=== PATIENT | female | born 1990 | race American Indian/Alaskan Native ===

== ENCOUNTER 2020-01-07 07:26 | Observation (INO) | payer MEDICAID, SELFPAY ==
[2020-01-07 07:31] VITALS: BP 147/108; PULSE 124; TEMP 36.9; O2SAT 98
[2020-01-07 08:08] LABS: Bilirubin Negative (Negative); Blood Negative (Negative); Clarity Clear (Clear); Glucose Negative (Negative); Ketones Negative (Negative); Leukocyte Esterase Negative (Negative); Nitrite Negative (Negative); Urobilinogen 0.2 EU/dL (Up TO 0.2)
[2020-01-07 08:17] LABS: Bacteria Rare HPF (Negative); Crystals Negative HPF (Negative); Epithelial Cells Rare HPF (Negative); RBC 0-2 HPF (0-2); WBC 0-2 HPF (0-5)
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
[2020-01-07 08:18] LABS: C & S Indicated? No; Casts Negative LPF (Negative); Mucus Negative (Negative)
--- NOTE | 2020-01-07 08:18 | CMSP_ITS ---
- If Service Date Differs Date of service: 01/07/20 Time of Service: 08:19 Care Management Safety Plan Chief Complaint: Dave, who identifies as female and prefers to be called Brianna, is a 29 year old individual who presents in the emergency department with her boyfriend for a psych eval. Upon arrival at the hospital, Brianna is slurring her speech, is somnolent, and is clinically intoxicated with a PRASHANT of 416.6. Several hours later, Brianna is sober and able to be assessed by Lacy [facility] crisis screener. She reports suicidal ideation but denies plan to act on the thoughts. She also admits to hearing voices and supernatural activity throughout the day and night. Brianna is seeking a voluntary placement to address her depression, auditory hallucinations, SI, and substance use. VOLUNTARY FOR INPATIENT PSYCHIATRIC STABILIZATION. Patient is appropriate in all interactions since arriving at [facility]; Pt has demonstrated appropriate coping and communication skills, has articulated her needs and concerns and is fully engaged during staff interactions. Safety plan has been established with patient, and care team, to adhere to patient goals, identify restrictions based on behavioral status, address nutrition, and determine allowed personal belongings, tools for hygiene and personal care. Determine level of activity including ambulation, level of supervision, visitors, and determine privileges based on behaviors and level of engagement by pt. SAFETY PLAN: 1. Will remain on suicide precautions and in paper clothes. 2. Will remain in room under direct supervision of one-on-one staff at all times provided by CPSO; VALENTIN, LDR RN acds block 1 operator. 3. May have paper cups, plates, finger foods as well as a metal spoon with which to eat meals. [facility] staff will be responsible for removing spoon once patient is done eating. 4. Follow [facility] Management of the Admitted Behavioral Health Patient policy. 5. Comfort bath system only. 6. No personal belongings. 7. Visitors-Boyfriend, Jamie, allowed to visit as long as appropriate and at nursing discretion. Per Dr. Wilson, boyfriend has been covid tested. 8. Activities: None while in the ED. If patient is moved to Med/Surg, will be allowed soft tip markers, paper, television, and other activities at nursing discretion. 9. Bathroom privileges: While in the ED, must be accompanied by staff. If patient is moved to Med/Surg, will be allowed to use the bathroom in her room w [facility] supervision. 10. Phone: No phone privileges at this time. 11. Due to VOLUNTARY status, if patient wishes to leave [facility], the [facility] chisel worker must be contacted to re-evaluate patient prior to patient exiting the building. Patient is currently voluntarily at [facility] and seeking inpatient admission when a bed becomes available. [facility] Frontline Washer Operator will continue seeking placement. Please contact the Oven Heater Helper Harbor Tug Captain ([phone]) and [facility] Washer Operator ([phone]) for any needed changes in the Safety Plan. Safety plan has been provided to interdepartmental care team.
[2020-01-07 08:28] LABS: *AMPHETAMINES SCREEN URINE Negative (Negative); *BARBITURATES SCREEN URINE Negative (Negative); *BENZODIAZEPINES SCREEN URINE Negative (Negative); Cannabinoids THC POSITIVE (Negative); Cocaine Screen,Urine Negative (Negative); METHADONE URINE SCREEN Negative (Negative); OPIATES URINE SCREEN Negative (Negative)
[2020-01-07 08:29] LABS: Tricyclic Antidepressants Negative (Negative)
[2020-01-07 08:57] LABS: Abs Immature Grans 0.01 k/cumm (0.0-0.09); Absolute Basophil Count 0.01 k/cumm (0.0-0.2); Absolute Eosinophil Count 0.12 k/cumm (0.0-0.7); Absolute Monocyte Count 0.35 k/cumm (0.11-0.7); Absolute Neutrophil Count 2.44 k/cumm (1.2-6.7); Basophils % 0.2; Eosinophils % 2.7; HCT 42.9 % (36.0-46.0); HGB 15.8 g/dL (12.0-15.5); Immature Grans % 0.2 %; Lymphocytes % 33.9; Mean Corp. HGB Concentration 36.8 g/dL (32.0-36.0); Mean Corpuscular Volume 97.7 fL (80-95); Mean Platelet Volume 9.7 fL (8.0-11.0); Monocytes % 7.9; Neutrophils % 55.1; Platelet Count 213 x1000/uL (130-400); RBC 4.39 m/cumm (4.00-5.20); RBC Distribution Width 11.5 % (11.7-14.6); White Blood Cell Count 4.43 k/cumm (4.4-10.8)
[2020-01-07 09:11] LABS: Diff Comment RBC Morph Reviewed; RBC Morphology Normal
[2020-01-07 09:14] LABS: ALT 23 U/L (14-59); AST 28 U/L (15-37); Albumin 4.1 g/dL (3.4-5.0); Alkaline Phosphatase 73 U/L (46-116); Anion Gap 11.7 mmol/L (3-11); BUN 8 mg/dL (7-18); Bilirubin, Total 0.3 mg/dL (0.2-1.0); CO2 25.3 mmol/L (21.0-32.0); CREATININE 1.04 mg/dL (0.55-1.02); Calcium 7.9 mg/dL (8.5-10.1); Chloride 108 mmol/L (98-107); Glucose 127 mg/dL (74-106); Potassium 3.2 mmol/L (3.5-5.1); Sodium 145 mmol/L (136-145); Total Protein 6.9 g/dL (6.4-8.2)
[2020-01-07 09:21] LABS: ETHANOL BLOOD 416.6 mg/dL (<3)
--- NOTE | 2020-01-07 16:19 | PDOC.MHCN ---
<Lacy Solo - Last Filed: 01/07/20 16:52> Date of service: 01/07/20 Time of Service: 16:19 Mental Health Crisis Note <Lacy Solo - Last Filed: 01/07/20 16:52> Presenting Issue How did you arrive at the ED and why did you come: Patient arrived at ED per boyfriends request for mental health assessment. When patient arrived at ED she was under the influence of alcohol so she needed to sober up before her assessment could take place. Patient is a transgender, born as a male identifies as a female. Precipitating Factors Patient states that she has wandering suicidal thoughts, but denies having a plan. Patient denies HI. Patient states that they hear voices that are not audible to others. Patient states that she hears supernatural activity throughout the day and night. Disposition BEHAVIOR: When mental health clinician entered the room via zoom patient was dressed in paper attire sitting on the bed. EYE CONTACT: Patients eye contact was distorted as she would make eye contact with mental health clinician at times, but would also have wandering eyes around the room. MOOD: Patient stated that they are depressed. Patient appears to be depressed and sad, visibly crying at times. AFFECT: Flat affect, showing no affective expression with mental health clinician. APPETITE: Patient stated that her appetite has been on and off, the majority of the time eating 2x a day depending on how much she has drank. SLEEP(trouble falling/staying asleep: Patient stated that she has not been sleeping very well due to the constant voices that she hears. When she falls asleep she awakens frequently. Plan Patient is seeking voluntary hospitalization after consulting with doctor and mental health clinician. This conventional underwriter will call to check on available beds. Safety plan in place with urgent care physician. Referral paperwork will be faxed when bed availability is known. Signature Clinician's Name/Title: Lacy Solo [facility] mental health clinician.
[2020-01-07] MEDS: Potassium Chloride 20 MEQ TABCR PO (16:30)
[2020-01-07] MEDS: LORazepam 1 MG TAB PO (16:30)
[2020-01-07 18:43] VITALS: BP 135/92; PULSE 111; RESP 18; TEMP 36.7; O2SAT 96
[2020-01-07 19:05] VITALS: BP 147/92; PULSE 114; RESP 16; TEMP 37.2; O2SAT 95
[2020-01-07] MEDS: Potassium Chloride 20 MEQ TABCR 40 MEQ PO (20:42)
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
[2020-01-08] MEDS: Thiamine 100 MG TAB PO ×2 (00:27→08:32)
[2020-01-08 04:00] VITALS: BP 140/93; PULSE 104; RESP 17; TEMP 37.1; O2SAT 98
[2020-01-08 07:36] LABS: Anion Gap 8.8 mmol/L (3-11); BUN 10 mg/dL (7-18); CO2 28.2 mmol/L (21.0-32.0); CREATININE 0.95 mg/dL (0.55-1.02); Calcium 9.7 mg/dL (8.5-10.1); Chloride 103 mmol/L (98-107); Glucose 99 mg/dL (74-106); Magnesium 1.6 mg/dL (1.8-2.4); Potassium 3.6 mmol/L (3.5-5.1); Sodium 140 mmol/L (136-145); TSH (W/Ref FT4) 0.83 uIU/mL (0.36-3.74)
[2020-01-08 07:45] LABS: ETHANOL BLOOD < 3.0 mg/dL (<3)
[2020-01-08 07:57] LABS: COVID-19 RT-PCR UVMMC Result Negative (Negative)
[2020-01-08 07:59] VITALS: BP 147/89; PULSE 84; RESP 18; TEMP 37.6; O2SAT 98
[2020-01-08] MEDS: Multivitamin TAB 1 TAB PO (08:32)
[2020-01-08] MEDS: Acetaminophen 325 MG TAB PO (08:32)
[2020-01-08] MEDS: Lisinopril 10 MG TAB 30 MG PO (08:32)
[2020-01-08] MEDS: LORazepam 1 MG TAB PO (09:22)
--- NOTE | 2020-01-08 10:02 | PDOC.MHCN_ITS ---
Date of service: 01/08/20 Time of Service: 10:02 Mental Health Crisis Note Presenting Issue How did you arrive at the ED and why did you come: Patient arrived at ED yesterday morning per the request of her boyfriend for a mental health assessment. When patient arrived she was under the influence of alcohol and needed to sober up before a mental health assessment could be completed. Patient stated that others were concerned for her mental safety as she and her significant other moved to the area around 2 weeks ago and she does not currently have mental health services or medication management set up. Precipitating Factors Patient denies SI and HI. When mental health clinician asked patient on a scale of 0-10, 0 being that they would be fine is they walked out of here and 10 being they would find a way to harm themselves, client stated intent was a 6. Disposition BEHAVIOR: When mental health clinician entered room via zoom with career professional patient was sitting on bed in paper clothing. Client actively engaged with mental health clinician answering all of the questions that mental health clinician asked of her. EYE CONTACT: Patients eye contact was the majority good, however appeared to be distorted at times as patient would look to her boyfriend for help to answer some of the questions. MOOD: Patient appeared to be depressed and expressed that they had some anxiety this morning. AFFECT: Flat affect, showing no effective expression with mental health clinician. APPETITE: Patient stated that they have been eating pretty well, was able to eat dinner last night and some of their breakfast this morning. During breakfast this morning patient stated that they were having some anxiety, which suppressed their appetite. Patient stated that their anxiety level was about a 6. SLEEP(trouble falling/staying asleep: Patient stated that they were able to sleep ok last night. Patient reported that they got about 5 or 6 hours of sleep last night. Plan Mental health clinician is [facility] [place]. Mental health clinician will call other hospitals to see if they are taking referrals. Patient will remain at [facility] transition bed awaiting bed availability. Signature Clinician's Name/Title: Lacy Solo [facility] Mental Health Clinician.
--- NOTE | 2020-01-08 10:05 | PDOC.CMIN ---
- If Service Date Differs Date of service: 01/08/20 Time of Service: 10:05 Care Management Initial Assess REASON FOR HOSPITALIZATION:: Suicidal ideation and alcohol abuse. PAST MEDICAL HISTORY/PAST SURGICAL HISTORY:: Medical History: Alcohol abuse, Depression, and Hypertension. Surgical History: No pertinent past surgical history. PREVIOUS FUNCTIONAL STATUS/SOCIAL/FAMILY SUPPORTS:: Brianna is a 29 year old transgender female who lives in [facility] with her partner, Jamie. Brianna previously lived in [place], but at the beginning of December of this year, she and Jamie purchased a house in [place], [place], and moved to the area. 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 She enjoys playing the piano, writing, both music and stories, listening to music, and reading books. She names Jamie as a source of support, in addition to her mom and grandparents who live in [place], and a sister and her who reside in [place]. Brianna is independent with her ADLs at baseline. CURRENT FUNCTIONAL STATUS:: Brianna is lying in bed watching television when CM meets with her. She is pleasant and easily engages in conversation. Brianna states she has struggled with depression and PTSD for many years and has had several psychiatric hospitalizations. She expresses a desire to get back on medications for mood stabilization and also wants to find a therapist. CM will continue to follow. ADVANCE DIRECTIVES:: None on file. Has patient been provided with info about the portal/API?: Yes Did the patient sign up for the portal?: No CODE STATUS:: Full Code INSURANCE COVERAGE / FINANCIAL ISSUES:: Self-pay. CM will coordinate referral to [facility] for assistance applying for Medicaid. CURRENT HOME/COMMUNITY SERVICES/EQUIPMENT:: Denies home/community services and equipment. PRIMARY CARE PHYSICIAN:: None. CM will coordinate referral to [facility] to assist patient in establishing care with a local PCP. POTENTIAL DISCHARGE NEEDS:: Follow up appointments with PCP and HS. PATIENT/FAMILY EDUCATION NEEDS:: Discharge instructions and expectations. ANTICIPATED BARRIERS TO DISCHARGE:: Psych bed availability. TRANSPORTATION:: Via wildlife officer once a placement has been secured. PLAN:: Brianna will be discharged to an inpatient psych facility when a bed is available. CM will continue to follow.
[2020-01-08] MEDS: MAGNESIUM SULFATE 2 GM/50 ML BAG IVPB (11:03)
--- NOTE | 2020-01-08 11:26 | W.PM.PROGNOT ---
Date of Service Date of service: 01/08/20 Time of Service: 11:26 Assessment and Plan Assessment and plan (1) Suicidal thoughts: Status: Acute Assessment and plan: awaiting inpatient psychiatric placement, voluntary. covid screening was negative. patient is medically stable. (2) Alcohol abuse: Status: Chronic Assessment and plan: no DT or significant withdrawal symptoms. (3) Depression: Status: Chronic Assessment and plan: awaiting inpatient psychiatric hospital for stabilization of mood and re-initiation of antidepressants Qualifiers: Active/Remission status: currently active Depression Type: major depressive disorder Major depression episode severity: severe Major depression recurrence: recurrent Psychotic features: without psychotic features Qualified Code(s): F33.2 - Major depressive disorder, recurrent severe without psychotic features (4) Hypertension: Status: Chronic Assessment and plan: continue lisinopril and monitor, adjust medication as needed (5) Discharge planning issues: Status: Acute Assessment and plan: patient is medically cleared and awaiting voluntary inpatient psychiatric admission. mental health and case management following. case and plan of care discussed with Dr Enrique who is in agreement with plan Subjective Subjective Patient reports: no new complaints, feels better, tolerating liquids well and tolerating a regular diet Interval history since last seen: does have a mild headache and some anxiety. received tylenol and ativan with good effect. no signs of ETOH withdrawal. Exam Const General: cooperative, comfortable, no acute distress and disheveled Nutritional Appearance: average body habitus Orientation: alert, awake and oriented x3 HENMT Head: normal to inspection, normocephalic and atraumatic Mouth: oral mucosae normal Resp Effort & Inspection: normal respiratory effort Auscultation: clear to auscultation bilaterally Cardio Rate: regular rate Rhythm: regular rhythm Heart Sounds: no murmurs GI Inspection: normal to inspection Palpation: soft Auscultation: normal bowel sounds Neuro General: patient alert, patient awake, patient oriented x3 and moves all extremities Cognition: normal cognition Speech: speech normal Gait: normal gait Motor: muscle tone normal throughout Extrem General: normal to inspection and full ROM Psych Appearance: grossly normal Mental Status: mental status grossly normal Speech and Movement: speech and movement normal Mood: congruent mood Affect: normal affect Attitude: cooperative Thought Process: normal Thought Content: normal Judgment: fair Objective Objective Clinical Data: Abnormal lab results 01/08/20 Range/Units 06:55 Magnesium 1.6 L (1.8-2.4) mg/dL Vital Signs Temperature 37.6 C H 01/08/20 07:59 Temperature Source Tympanic 01/08/20 07:59 Pulse 84 01/08/20 07:59 Pulse Rhythm Regular 01/08/20 10:17 Respiratory Rate 18 01/08/20 07:59 Respiratory Effort Non-Labored 01/08/20 10:17 Respiratory Depth Normal 01/08/20 10:17 Respiratory Pattern Normal 01/08/20 10:17 Blood Pressure 147/89 H 01/08/20 07:59 Blood Pressure Position Sitting 01/07/20 07:31 Pulse Oximetry 98 01/08/20 07:59 Oxygen Delivery Method Room Air 01/08/20 07:59 Oxygen Flow Rate 0 01/08/20 07:59 Pain Level 7 01/08/20 08:32 Intake & Output 01/07/20 01/07/20 01/08/20 11:59 23:59 11:59 Intake Total 1310 / 1310 490 / 490 Balance 1310 / 1310 490 / 490 Weight 68.039 kg Intake: IV Oral 1300 / 1300 490 / 490 Other: Urine Color Yellow Urine Appearance Clear Clear Urine Odor Normal Comment Per patient rate. Voiding Methods Toilet Laboratory Results WBC 4.43 k/cumm (4.4-10.8) 01/07/20 08:50 RBC 4.39 m/cumm (4.00-5.20) 01/07/20 08:50 Hgb 15.8 g/dL (12.0-15.5) H 01/07/20 08:50 Hct 42.9 % (36.0-46.0) 01/07/20 08:50 MCV 97.7 fL (80-95) H 01/07/20 08:50 MCH 36.0 pg (27.0-33.0) H 01/07/20 08:50 MCHC 36.8 g/dL (32.0-36.0) H 01/07/20 08:50 RDW 11.5 % (11.7-14.6) L 01/07/20 08:50 Plt Count 213 x1000/uL (130-400) 01/07/20 08:50 MPV 9.7 fL (8.0-11.0) 01/07/20 08:50 Immature Gran % 0.2 % 01/07/20 08:50 Neutrophils % 55.1 01/07/20 08:50 Lymphocytes % 33.9 01/07/20 08:50 Monocytes % 7.9 01/07/20 08:50 Eosinophils % 2.7 01/07/20 08:50 Basophils % 0.2 01/07/20 08:50 Absolute Neutrophils 2.44 k/cumm (1.2-6.7) 01/07/20 08:50 Absolute Lymphocytes 1.50 k/cumm (1.2-3.4) 01/07/20 08:50 Absolute Monocytes 0.35 k/cumm (0.11-0.7) 01/07/20 08:50 Absolute Eosinophils 0.12 k/cumm (0.0-0.7) 01/07/20 08:50 Absolute Basophils 0.01 k/cumm (0.0-0.2) 01/07/20 08:50 Differential Comment Rbc morph reviewed 01/07/20 08:50 RBC Morphology Normal 01/07/20 08:50 Sodium 140 mmol/L (136-145) 01/08/20 06:55 Potassium 3.6 mmol/L (3.5-5.1) 01/08/20 06:55 Chloride 103 mmol/L (98-107) 01/08/20 06:55 Carbon Dioxide 28.2 mmol/L (21.0-32.0) 01/08/20 06:55 Anion Gap 8.8 mmol/L (3-11) 01/08/20 06:55 BUN 10 mg/dL (7-18) 01/08/20 06:55 Creatinine 0.95 mg/dL (0.55-1.02) 01/08/20 06:55 Estimated GFR/1.73 m2 >= 60.00 (mL/min/1.73m2) 01/08/20 06:55 Glucose 99 mg/dL (74-106) 01/08/20 06:55 Calcium 9.7 mg/dL (8.5-10.1) 01/08/20 06:55 Magnesium 1.6 mg/dL (1.8-2.4) L 01/08/20 06:55 Total Bilirubin 0.3 mg/dL (0.2-1.0) 01/07/20 08:50 AST 28 U/L (15-37) 01/07/20 08:50 ALT 23 U/L (14-59) 01/07/20 08:50 Alkaline Phosphatase 73 U/L (46-116) 01/07/20 08:50 Total Protein 6.9 g/dL (6.4-8.2) 01/07/20 08:50 Albumin 4.1 g/dL (3.4-5.0) 01/07/20 08:50 TSH 0.83 uIU/mL (0.36-3.74) 01/08/20 06:55 Urine Color Yellow (Yellow) 01/07/20 08:01 Urine Clarity Clear (Clear) 01/07/20 08:01 Urine pH 7.0 (5-8) 01/07/20 08:01 Ur Specific [place] 1.020 (1.005-1.025) 01/07/20 08:01 Urine Protein Trace mg/dL (Negative) H 01/07/20 08:01 Urine Ketones Negative mg/dL (Negative) 01/07/20 08:01 Urine Blood Negative (Negative) 01/07/20 08:01 Urine Nitrite Negative (Negative) 01/07/20 08:01 Urine Bilirubin Negative (Negative) 01/07/20 08:01 Urine Urobilinogen 0.2 EU/dL (Up TO 0.2) 01/07/20 08:01 Ur Leukocyte Esterase Negative (Negative) 01/07/20 08:01 Urine RBC 0-2 HPF (0-2) 01/07/20 08:01 Urine WBC 0-2 HPF (0-5) 01/07/20 08:01 Ur Epithelial Cells Rare HPF (Negative) 01/07/20 08:01 Urine Crystals Negative HPF (Negative) 01/07/20 08:01 Urine Bacteria Rare HPF (Negative) 01/07/20 08:01 Urine Casts Negative LPF (Negative) 01/07/20 08:01 Urine Mucus Negative (Negative) 01/07/20 08:01 Ur Culture Indicated? No 01/07/20 08:01 Urine Glucose Negative mg/dL (Negative) 01/07/20 08:01 Urine Opiates Screen Negative (Negative) 01/07/20 08:01 Urine Methadone Screen Negative (Negative) 01/07/20 08:01 Ur Barbiturates Screen Negative (Negative) 01/07/20 08:01 Ur Tricyclics Screen Negative (Negative) 01/07/20 08:01 Ur Amphetamines Screen Negative (Negative) 01/07/20 08:01 U Benzodiazepines Scrn Negative (Negative) 01/07/20 08:01 Urine Cocaine Screen Negative (Negative) 01/07/20 08:01 Ur THC Screen Positive (Negative) A 01/07/20 08:01 Ethyl Alcohol < 3.0 mg/dL (<3) 01/08/20 06:55 COVID-19 PCR Negative (Negative) 01/07/20 17:23 Nasopharyn COVID-19 PCR Not Applicable 01/07/20 17:23 Ref Test Perform Site [facility] 01/07/20 17:23
[2020-01-08 15:30] VITALS: BP 129/78; PULSE 78; RESP 18; TEMP 37.7; O2SAT 94
--- NOTE | 2020-01-08 20:00 | CMSP_ITS ---
- If Service Date Differs Date of service: 01/08/20 Time of Service: 20:00 Care Management Safety Plan Chief Complaint: Dave, who identifies as female and prefers to be called Brianna, is a 29 year old individual who remains at [facility] awaiting a voluntary psych placement. Brianna reports a history of depression and PTSD, along with substance use. She denies current suicidal ideation, but feels unsafe to return home as she fears the SI will return. She also admits to hearing voices and supernatural activity throughout the day and night. Brianna is seeking a voluntary placement to address her depression, auditory hallucinations, SI, and substance use. VOLUNTARY FOR INPATIENT PSYCHIATRIC STABILIZATION. Patient is appropriate in all interactions since arriving at [facility]; Pt has demonstrated appropriate coping and communication skills, has articulated her needs and concerns and is fully engaged during staff interactions. Safety plan has been established with patient, and care team, to adhere to patient goals, identify restrictions based on behavioral status, address nutrition, and determine allowed personal belongings, tools for hygiene and personal care. Determine level of activity including ambulation, level of supervision, visitors, and determine privileges based on behaviors and level of engagement by pt. SAFETY PLAN: 1. Will remain on suicide precautions and in paper clothes. 2. Will remain in room under direct supervision of one-on-one staff at all times provided by [employer]; VALENTIN, SALT CUTTER supervisor testing. 3. May have paper cups, plates, finger foods as well as a metal spoon with which to eat meals. [facility] staff will be responsible for removing spoon once patient is done eating. 4. Follow [facility] Management of the Admitted Behavioral Health Patient policy. 5. Bathing: Patient is allowed to shower with supervision and at nursing discretion. 6. No personal belongings. 7. Visitors-Boyfriend, Jamie, allowed to visit as long as appropriate and at nursing discretion. Per Dr. Wilson, boyfriend has been covid tested. 8. Activities: Allowed soft tip markers, paper, television, and other activities at nursing discretion. 9. Bathroom privileges: Patient can use the bathroom in her room without supervision. 10. Phone: No phone privileges at this time. 11. Due to VOLUNTARY status, if patient wishes to leave [facility], the [facility] farmworker egg producing farm must be contacted to re-evaluate patient prior to patient exiting the building. Patient is currently voluntarily at [facility] and seeking inpatient admission when a bed becomes available. [facility] Frontline Weatherization Coordinator will continue seeking placement. Please contact the Conference Center Coordinator Chairman & Chief Executive Officer ([phone]) and [facility] Weatherization Coordinator ([phone]) for any needed changes in the Safety Plan. Safety plan has been provided to interdepartmental care team.
[2020-01-08 22:19] VITALS: BP 144/91; PULSE 71; RESP 17; TEMP 36.8; O2SAT 97
[2020-01-09] MEDS: Normal Saline Flush 10 ML SYR IVP (07:59)
[2020-01-09] MEDS: Multivitamin TAB 1 TAB PO (08:00)
[2020-01-09] MEDS: Thiamine 100 MG TAB PO (08:00)
[2020-01-09] MEDS: Lisinopril 10 MG TAB 30 MG PO (08:00)
[2020-01-09] MEDS: LORazepam 1 MG TAB PO/SL (08:01)
[2020-01-09 09:49] VITALS: BP 134/87; PULSE 74; RESP 17; TEMP 36.6; O2SAT 97
--- NOTE | 2020-01-09 11:15 | W.INMHPGNOTE ---
Date of service: 01/09/20 Time of Service: 10:18 Mental Health Crisis Note Presenting Issue How did you arrive at the ED and why did you come: The patient is seen for follow-up assessment via telehealth for ED admit on 01/06 with report of alcohol use, elevated SI, and mental health stability issues. Precipitating Factors The patient is a 29yo transgender MTF. She reports moving to the area 2 weeks ago and states that housing issues (utilities, code violations / standards) have been ongoing since arrival. She reports using alcohol increasingly as a coping mechanism and advises that interpersonal conflict with her S/O and housing are prominent stress factors. No current PCP / counseling arrangement. The patient has a reported history of manic depression, bipolar d/o, PTSD, and dissociative identify disorder and has prior in-patient treatment (15 or more days) at [facility] in [place]. She advises that her current medication (Cymbalta) is not entirely effective in treating depressive symptoms and elevated stress. The patient presents in a standard-issue hospital gown. Grooming is adequate. She is A/Ox4 with immediate, recent and remote memory intact. She is appropriately responsive to questions and is engaged. Mood is reported as frustrated / tired with affect that is depressed and intermittently tearful. She states that she is looking forward to a visit from her boyfriend and identifies this individual as one of her few supports. Speech is clear, coherent, normal rate and volume with no delayed response. She reports occasionally hearing voices, described as non-specific background static, and sometimes observes 'lifeforms' / spirits in her current home. She does not identify these voices or visual stimuli as threatening but advises their presence has provoked arguments between herself and her boyfriend. She denies current SI/HI, intent or plan. Disposition BEHAVIOR: Appropriate in all interactions. EYE CONTACT: Patient maintains good eye contact throughout assessment. MOOD: Frustrated / tired AFFECT: Depressed APPETITE: No reported issues SLEEP(trouble falling/staying asleep: Patient reports sleep disturbance while at home and in the hospital and advises that it is difficult falling asleep and maintaining decent sleep quality. Plan Admission to [facility] is still being reviewed at the time of this assessment. The patient is voluntarily requesting in-patient hospitalization for mood stabilization and medication management and will remain at [facility] pending suitable discharge location. Signature Clinician's Name/Title: George Kurtz [facility] Clinician
[2020-01-09 11:19] LABS: Anion Gap 9.5 mmol/L (3-11); BUN 12 mg/dL (7-18); CO2 27.5 mmol/L (21.0-32.0); CREATININE 1.01 mg/dL (0.55-1.02); Calcium 10.4 mg/dL (8.5-10.1); Chloride 101 mmol/L (98-107); Glucose 113 mg/dL (74-106); Magnesium 2.1 mg/dL (1.8-2.4); Potassium 4.2 mmol/L (3.5-5.1); Sodium 138 mmol/L (136-145)
--- NOTE | 2020-01-09 12:53 | PDOC.CMPRO ---
- If Service Date Differs Date of service: 01/09/20 Time of Service: 12:53 Care Management Progress Note Chief Complaint: Brianna is a 29 year old individual who remains at [facility] awaiting a voluntary psych placement. Brianna reports a history of depression and PTSD, along with substance use. She denies current suicidal ideation, but feels unsafe to return home as she fears the SI will return. She also admits to hearing voices and supernatural activity throughout the day and night. Brianna is seeking a voluntary placement to address her depression, auditory hallucinations, SI, and substance use. Today Brianna makes good eye contact, she is engaged during assessment with mental health and with CM. Her significant other is engaged as well and appropriate in interactions. CM spoke with primary team including [facility] crisis to review plan, and engaged patient. Brianna states is fine with the current safety plan and feels her needs are being met. Brianna does report she came into the hospital with her belongings including cell phone and pocketbook CM has been unable to locate either. VOLUNTARY FOR INPATIENT PSYCHIATRIC STABILIZATION. Patient is appropriate in all interactions since arriving at [facility]; Pt has demonstrated appropriate coping and communication skills, has articulated her needs and concerns and is fully engaged during staff interactions. Safety plan has been established with patient, and care team, to adhere to patient goals, identify restrictions based on behavioral status, address nutrition, and determine allowed personal belongings, tools for hygiene and personal care. Determine level of activity including ambulation, level of supervision, visitors, and determine privileges based on behaviors and level of engagement by pt. SAFETY PLAN: 1. Will remain on suicide precautions and in paper clothes. 2. Will remain in room under direct supervision of one-on-one staff at all times provided by [employer]; VALENTIN, ADVERTISING SALES ASSOCIATE home health administrator. 3. May have paper cups, plates, finger foods as well as a metal spoon with which to eat meals. [facility] staff will be responsible for removing spoon once patient is done eating. 4. Follow [facility] Management of the Admitted Behavioral Health Patient policy. 5. Bathing: Patient is allowed to shower with supervision and at nursing discretion. 6. Patient may have her brush and shampoo and conditioner. 7. Visitors-Boyfriend, Jamie, allowed to visit he is helpful in decreasing her anxiety as long as appropriate and at nursing discretion. 8. Activities: Allowed soft tip markers, paper, television, and other activities at nursing discretion. 9. Bathroom privileges: Patient can use the bathroom in her room without supervision. 10. Phone: Brianna may use the phone as needed and at the discretion of nursing staff 11. Due to VOLUNTARY status, if patient wishes to leave [facility], the [facility] sawmill production worker must be contacted to re-evaluate patient prior to patient exiting the building. Plan: Brianna will be discharged to [facility] on Thursday. She will need to leave [facility] at 0900 via cooking show host. CM will coordinate cooking show host transport.
--- NOTE | 2020-01-09 14:29 | W.PM.PROGNOT ---
Date of Service Date of service: 01/09/20 Time of Service: 14:29 Assessment and Plan Assessment and plan (1) Suicidal thoughts: Start date: 01/09/20 Start time: 15:06 Status: Acute Assessment and plan: awaiting inpatient psychiatric placement, voluntary. covid screening was negative. patient is medically stable. (2) Alcohol abuse: Start date: 01/09/20 Start time: 15:06 Status: Chronic Assessment and plan: no DT or significant withdrawal symptoms. CIWA 0 (3) Depression: Start date: 01/09/20 Start time: 15:06 Status: Chronic Assessment and plan: awaiting inpatient psychiatric hospital for stabilization of mood and re-initiation of antidepressants Qualifiers: Depression Type: major depressive disorder Major depression recurrence: recurrent Active/Remission status: currently active Major depression episode severity: severe Psychotic features: without psychotic features Qualified Code(s): F33.2 - Major depressive disorder, recurrent severe without psychotic features (4) Hypertension: Start date: 01/09/20 Start time: 15:06 Status: Chronic Assessment and plan: continue lisinopril and monitor, adjust medication as needed (5) Discharge planning issues: Start date: 01/09/20 Start time: 15:06 Status: Acute Assessment and plan: patient is medically cleared and awaiting voluntary inpatient psychiatric admission. mental health and case management following. case and plan of care discussed with Dr Enrique who is in agreement with plan Subjective Subjective Patient reports: other Interval history since last seen: States feeling overwhelmed, Crying. Patient has a 1:1 observer, not denying SI or HI but states feeling overwhelmed. Awaiting placement. Exam Const General: cooperative, comfortable, no acute distress and disheveled Nutritional Appearance: average body habitus Orientation: alert, awake and oriented x3 HENKY Head: normal to inspection, normocephalic and atraumatic Mouth: oral mucosae normal Resp Effort & Inspection: normal respiratory effort Auscultation: clear to auscultation bilaterally Cardio Rate: regular rate Rhythm: regular rhythm Heart Sounds: no murmurs GI Inspection: normal to inspection Palpation: soft Auscultation: normal bowel sounds Neuro General: patient alert, patient awake, patient oriented x3 and moves all extremities Cognition: normal cognition Speech: speech normal Gait: normal gait Motor: muscle tone normal throughout Extrem General: normal to inspection and full ROM Psych Appearance: grossly normal Mental Status: mental status grossly normal Speech and Movement: speech and movement normal Mood: congruent mood Affect: normal affect Attitude: cooperative Thought Process: normal Thought Content: normal Judgment: fair Objective Objective Clinical Data: Abnormal lab results 01/09/20 Range/Units 10:55 Glucose 113 H (74-106) mg/dL Calcium 10.4 H (8.5-10.1) mg/dL Vital Signs Temperature 36.6 C 01/09/20 09:49 Temperature Source Tympanic 01/09/20 09:49 Pulse 74 01/09/20 09:49 Pulse Rhythm Regular 01/09/20 07:45 Respiratory Rate 17 01/09/20 09:49 Respiratory Effort Non-Labored 01/09/20 07:45 Respiratory Depth Normal 01/09/20 07:45 Respiratory Pattern Normal 01/09/20 07:45 Blood Pressure 134/87 01/09/20 09:49 Blood Pressure Position Sitting 01/07/20 07:31 Pulse Oximetry 97 01/09/20 09:49 Oxygen Delivery Method Room Air 01/09/20 09:49 Oxygen Flow Rate 0 01/09/20 09:49 Pain Level 0 01/08/20 22:19 Intake & Output 01/08/20 01/09/20 01/09/20 23:59 11:59 23:59 Intake Total 960 / 1450 410 / 410 Balance 960 / 1450 410 / 410 Intake: IV Oral 960 / 1450 400 / 400 Other: Urine Color Yellow Urine Appearance Clear Comment No urine to assess at this time. Pt uses toliet independently. No urine collection hat in the toliet at this time. Voiding Methods Toilet Laboratory Results WBC 4.43 k/cumm (4.4-10.8) 01/07/20 08:50 RBC 4.39 m/cumm (4.00-5.20) 01/07/20 08:50 Hgb 15.8 g/dL (12.0-15.5) H 01/07/20 08:50 Hct 42.9 % (36.0-46.0) 01/07/20 08:50 MCV 97.7 fL (80-95) H 01/07/20 08:50 MCH 36.0 pg (27.0-33.0) H 01/07/20 08:50 MCHC 36.8 g/dL (32.0-36.0) H 01/07/20 08:50 RDW 11.5 % (11.7-14.6) L 01/07/20 08:50 Plt Count 213 x1000/uL (130-400) 01/07/20 08:50 MPV 9.7 fL (8.0-11.0) 01/07/20 08:50 Immature Gran % 0.2 % 01/07/20 08:50 Neutrophils % 55.1 01/07/20 08:50 Lymphocytes % 33.9 01/07/20 08:50 Monocytes % 7.9 01/07/20 08:50 Eosinophils % 2.7 01/07/20 08:50 Basophils % 0.2 01/07/20 08:50 Absolute Neutrophils 2.44 k/cumm (1.2-6.7) 01/07/20 08:50 Absolute Lymphocytes 1.50 k/cumm (1.2-3.4) 01/07/20 08:50 Absolute Monocytes 0.35 k/cumm (0.11-0.7) 01/07/20 08:50 Absolute Eosinophils 0.12 k/cumm (0.0-0.7) 01/07/20 08:50 Absolute Basophils 0.01 k/cumm (0.0-0.2) 01/07/20 08:50 Differential Comment Rbc morph reviewed 01/07/20 08:50 RBC Morphology Normal 01/07/20 08:50 Sodium 138 mmol/L (136-145) 01/09/20 10:55 Potassium 4.2 mmol/L (3.5-5.1) 01/09/20 10:55 Chloride 101 mmol/L (98-107) 01/09/20 10:55 Carbon Dioxide 27.5 mmol/L (21.0-32.0) 01/09/20 10:55 Anion Gap 9.5 mmol/L (3-11) 01/09/20 10:55 BUN 12 mg/dL (7-18) 01/09/20 10:55 Creatinine 1.01 mg/dL (0.55-1.02) 01/09/20 10:55 Estimated GFR/1.73 m2 >= 60.00 (mL/min/1.73m2) 01/09/20 10:55 Glucose 113 mg/dL (74-106) H 01/09/20 10:55 Calcium 10.4 mg/dL (8.5-10.1) H 01/09/20 10:55 Magnesium 2.1 mg/dL (1.8-2.4) 01/09/20 10:55 Total Bilirubin 0.3 mg/dL (0.2-1.0) 01/07/20 08:50 AST 28 U/L (15-37) 01/07/20 08:50 ALT 23 U/L (14-59) 01/07/20 08:50 Alkaline Phosphatase 73 U/L (46-116) 01/07/20 08:50 Total Protein 6.9 g/dL (6.4-8.2) 01/07/20 08:50 Albumin 4.1 g/dL (3.4-5.0) 01/07/20 08:50 TSH 0.83 uIU/mL (0.36-3.74) 01/08/20 06:55 Urine Color Yellow (Yellow) 01/07/20 08:01 Urine Clarity Clear (Clear) 01/07/20 08:01 Urine pH 7.0 (5-8) 01/07/20 08:01 Ur Specific [place] 1.020 (1.005-1.025) 01/07/20 08:01 Urine Protein Trace mg/dL (Negative) H 01/07/20 08:01 Urine Ketones Negative mg/dL (Negative) 01/07/20 08:01 Urine Blood Negative (Negative) 01/07/20 08:01 Urine Nitrite Negative (Negative) 01/07/20 08:01 Urine Bilirubin Negative (Negative) 01/07/20 08:01 Urine Urobilinogen 0.2 EU/dL (Up TO 0.2) 01/07/20 08:01 Ur Leukocyte Esterase Negative (Negative) 01/07/20 08:01 Urine RBC 0-2 HPF (0-2) 01/07/20 08:01 Urine WBC 0-2 HPF (0-5) 01/07/20 08:01 Ur Epithelial Cells Rare HPF (Negative) 01/07/20 08:01 Urine Crystals Negative HPF (Negative) 01/07/20 08:01 Urine Bacteria Rare HPF (Negative) 01/07/20 08:01 Urine Casts Negative LPF (Negative) 01/07/20 08:01 Urine Mucus Negative (Negative) 01/07/20 08:01 Ur Culture Indicated? No 01/07/20 08:01 Urine Glucose Negative mg/dL (Negative) 01/07/20 08:01 Urine Opiates Screen Negative (Negative) 01/07/20 08:01 Urine Methadone Screen Negative (Negative) 01/07/20 08:01 Ur Barbiturates Screen Negative (Negative) 01/07/20 08:01 Ur Tricyclics Screen Negative (Negative) 01/07/20 08:01 Ur Amphetamines Screen Negative (Negative) 01/07/20 08:01 U Benzodiazepines Scrn Negative (Negative) 01/07/20 08:01 Urine Cocaine Screen Negative (Negative) 01/07/20 08:01 Ur THC Screen Positive (Negative) A 01/07/20 08:01 Ethyl Alcohol < 3.0 mg/dL (<3) 01/08/20 06:55 COVID-19 PCR Negative (Negative) 01/07/20 17:23 Nasopharyn COVID-19 PCR Not Applicable 01/07/20 17:23 Ref Test Perform Site [place] [facility] 01/07/20 17:23
[2020-01-09] MEDS: LORazepam 1 MG TAB PO (14:59)
[2020-01-09 15:30] VITALS: BP 143/98; PULSE 84; RESP 19; TEMP 36.7; O2SAT 98
--- NOTE | 2020-01-09 15:38 | NUR.NOTE ---
Nursing Note: [id number]: pt states she had a cell phone at admission; cell phone not with belongings, cell phone not in ED or with marketing database coordinator, no cell phone documented in admission form. pt has a bag of clothes and shoes but there are no other belongings with pt's clothes. staff contacts pt's s/o who denies having pt's cell phone and piano case maker. s/o does have pt's identification.
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
[2020-01-09 22:21] VITALS: BP 125/84; PULSE 85; RESP 16; TEMP 36.6; O2SAT 96
[2020-01-10 07:22] VITALS: BP 124/77; PULSE 95; RESP 16; TEMP 37.2; O2SAT 96
[2020-01-10] MEDS: Lisinopril 10 MG TAB 30 MG PO (07:34)
[2020-01-10] MEDS: Thiamine 100 MG TAB PO (07:35)
[2020-01-10] MEDS: LORazepam 1 MG TAB PO (07:35)
[2020-01-10] MEDS: Multivitamin TAB 1 TAB PO (07:35)
--- NOTE | 2020-01-10 08:46 | PDOC.CMDIS ---
- If Service Date Differs Date of service: 01/10/20 Time of Service: 08:46 LACE Index Scoring Tool - Questions: Length of Stay (in days): 3 Acuity (Admit via E.D.?): Yes E.D. Visits: 1 - Answers: Total Score: 7 Risk of Readmission: Low Risk Care Management Discharge Reason for Hospitalization: Suicidal ideation and alcohol abuse. Discharge Plan: Brianna is being transfered to [facility] today for psychiatric treatment. Patient/Family Education Needs: Education related to transfer including what to expect at discharge and mode of transportation. Services Needed at Discharge: Transportation - MH Services (Omit if N/A) Current MH Services: Psychiatric Inp
--- NOTE | 2020-01-10 09:27 | NUR.NOTE ---
Nursing Note: 0720: RN calls ED and speaks with Mala Helm about pt's cell phone and purple purse. Volodymyr denies pt's cell phone and purse are in the ED.
== END 2020-01-10 09:22 | disposition short-term general hospital (02) ==
LOC: ER 18:16 → MS 18:51
PROVIDERS: Internal Medicine; Physician Assistant; Admitting Provider Internal Medicine; Emergency Provider Student in an Organized Health Care Education/Training Program; Visit Provider Internal Medicine
DX: F33.2 Major depressive disorder, recurrent severe without psychotic features (principal); R45.851 Suicidal ideations; F10.129 Alcohol abuse with intoxication, unspecified; Y90.8 Blood alcohol level of 240 mg/100 ml or more; E87.6 Hypokalemia; F41.9 Anxiety disorder, unspecified; R44.0 Auditory hallucinations; I10 Essential (primary) hypertension; Z62.810 Personal history of physical and sexual abuse in childhood; Z91.5 Personal history of self-harm; F64.0 Transsexualism
CPT/HCPCS: 36415; 80048; 80053; 80307; 99217; 99220; 99226; 99233; 99285; U0003; 80320; 81003; 81015; 83735; 84443; 85025; 99284; G0378

== ENCOUNTER 2020-02-05 20:52 | Emergency (ER) | payer MEDICAID, SELFPAY ==
[2020-02-05 21:00] VITALS: BP 92/50; PULSE 107; RESP 16; TEMP 36.4; O2SAT 100
[2020-02-05 21:13] VITALS: RESP 16
[2020-02-05] MEDS: Normal Saline 1,000 ML 1000 ML IV ×2 (21:20→22:40)
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
[2020-02-05 22:05] LABS: Abs Immature Grans 0.01 k/cumm (0.0-0.09); Absolute Basophil Count 0.01 k/cumm (0.0-0.2); Absolute Eosinophil Count 0.11 k/cumm (0.0-0.7); Absolute Lymphocyte Count 1.56 k/cumm (1.2-3.4); Absolute Monocyte Count 0.37 k/cumm (0.11-0.7); Absolute Neutrophil Count 3.67 k/cumm (1.2-6.7); Basophils % 0.2; Eosinophils % 1.9; HCT 40.1 % (36.0-46.0); Immature Grans % 0.2 %; Lymphocytes % 27.2; Mean Corpuscular Volume 94.8 fL (80-95); Mean Platelet Volume 9.6 fL (8.0-11.0); Monocytes % 6.5; Platelet Count 206 x1000/uL (130-400); RBC 4.23 m/cumm (4.00-5.20); RBC Distribution Width 11.6 % (11.7-14.6); White Blood Cell Count 5.73 k/cumm (4.4-10.8)
[2020-02-05 22:22] LABS: ALT 36 U/L (14-59); AST 71 U/L (15-37); Albumin 4.2 g/dL (3.4-5.0); Alkaline Phosphatase 61 U/L (46-116); BUN 9 mg/dL (7-18); Bilirubin, Total 0.4 mg/dL (0.2-1.0); CREATININE 1.84 mg/dL (0.55-1.02); Calcium 9.9 mg/dL (8.5-10.1); Chloride 99 mmol/L (98-107); Estimated GFR 32.91 (mL/min/1.73m2); Glucose 101 mg/dL (74-106); Magnesium 1.8 mg/dL (1.8-2.4); Potassium 3.2 mmol/L (3.5-5.1); Sodium 137 mmol/L (136-145); Total Protein 6.7 g/dL (6.4-8.2)
[2020-02-05 22:32] LABS: Mean Corp. HGB Concentration 34.9 g/dL (32.0-36.0); Polychromasia Present
[2020-02-05 22:35] LABS: Mean Corpuscular Hemoglobin 33.1 pg (27.0-33.0)
[2020-02-05 22:53] VITALS: PULSE 99; RESP 18; O2SAT 95
[2020-02-06 00:30] VITALS: BP 85/54; PULSE 89; RESP 20; O2SAT 96
[2020-02-06] MEDS: Normal Saline 1,000 ML 1000 ML IV (00:37)
[2020-02-06] MEDS: Potassium Chloride 20 MEQ TABCR 40 MEQ PO (02:37)
[2020-02-06 02:39] LABS: Anion Gap 10.4 mmol/L (3-11); BUN 9 mg/dL (7-18); CO2 22.6 mmol/L (21.0-32.0); CREATININE 1.59 mg/dL (0.55-1.02); Calcium 7.7 mg/dL (8.5-10.1); Chloride 108 mmol/L (98-107); Estimated GFR 38.95 (mL/min/1.73m2); Glucose 87 mg/dL (74-106); Potassium 3.9 mmol/L (3.5-5.1); Sodium 141 mmol/L (136-145)
[2020-02-06 02:41] VITALS: BP 146/86; PULSE 98; RESP 16; O2SAT 95
== END 2020-02-06 03:20 | disposition home or self-care (01) ==
LOC: ER 02-06 03:12
PROVIDERS: Emergency Provider Nurse Practitioner Acute Care
DX: F10.120 Alcohol abuse with intoxication, uncomplicated (principal); N17.9 Acute kidney failure, unspecified; E87.6 Hypokalemia; I95.9 Hypotension, unspecified; Z63.0 Problems in relationship with spouse or partner; I10 Essential (primary) hypertension
CPT/HCPCS: 36415; 80048; 80053; 96360; 96361; 99285; 83735; 85025; 99284

== ENCOUNTER 2020-06-22 20:26 | Observation (INO) | payer MEDICAID, SELFPAY ==
[2020-06-22] VITALS (35 sets, daily range): BP systolic 53–79; BP diastolic 26–54; PULSE 99–133; RESP 10–32; TEMP 36.6; O2SAT 92–98
--- NOTE | 2020-06-22 20:15 | RT.EKG_ITS ---
APPROVED REPORT Exam: Resting ECG Patient Location: E HR:122 bpm ECG Measurements Heart Rate 122 AXIS [place] 144 P 57 QRSd 78 QRS 79 QT 328 T 36 QTc 468 Conclusion Sinus tachycardia...rate> 99 Normal [place] No Acute ST Changes
--- NOTE | 2020-06-22 20:50 | ED.GENADUL_ITS ---
Discharge Plan Discharge Details Chief Complaint: GenMedical Primary Care Provider: Nelia Quevedo ED Provider: Siobhan Husain Home Meds and New Rx's Prescriptions: No Action estradiol 0.025 mg/24 hr patch semiweekly 1 patch TD .COMPLEX RF: 0 spironolactone 50 mg tablet 50 mg PO BID Qty: 60 RF: 0 lisinopril 30 mg tablet 30 mg PO DAILY Qty: 30 RF: 11 hydroxyzine pamoate 25 mg capsule 25 mg PO Q4H PRN (Reason: itching) Qty: 30 RF: 2 bupropion HCl 150 mg tablet extended release 24 hr 150 mg PO QAM Qty: 30 RF: 0 duloxetine 60 mg capsule,delayed release(DR/EC) 60 mg PO DAILY Qty: 30 RF: 0 prazosin 5 mg capsule 5 mg PO QPM Qty: 7 RF: 0 prazosin 2 mg capsule 2 mg PO QPM Qty: 7 RF: 0 Trintellix 5 mg tablet 5 mg PO DAILY RF: 0 Medical Decision Making Presents by EMS for reports of suicidal ideation Denies suicidal ideation at this time Denies any physical complaints no dizziness chest pain shortness of breath Remains hypotensive and cardiac we will continue IV fluid bolus check routine lab and monitor received4 liters of NS with no improvement in vital signs. still asymptomatic. provided urine sample will refer to observation for further monitoring and mental health evaluation when medically stable report and care of patient given to Dr Rose Medical Records Medical records reviewed: Yes I reviewed the patient's medical records. Lab Data Lab results reviewed: Yes I reviewed the patient's lab results. Lab results narrative: Laboratory Results - last 24 hr 06/22/20 06/22/20 06/22/20 20:49 21:00 21:00 WBC 5.90 RBC 3.02 L Hgb 10.5 L Hct 29.6 L MCV 98.0 H MCH 34.8 H MCHC 35.5 RDW 11.2 L Plt Count 164 MPV 10.1 Immature Gran % 0.2 Neutrophils % 72.8 Lymphocytes % 21.4 Monocytes % 4.2 Eosinophils % 1.2 Basophils % 0.2 Nucleated RBC % 0 Absolute Neutrophils 4.30 Absolute Lymphocytes 1.26 Absolute Monocytes 0.25 Absolute Eosinophils 0.07 Absolute Basophils 0.01 Sodium 139 Potassium 3.5 Chloride 108 H Carbon Dioxide 18.9 L Anion Gap 12.1 H BUN 17 Creatinine 1.35 H Estimated GFR/1.73 m2 47.04 Glucose 125 H Calcium 8.0 L Magnesium 1.5 L Total Bilirubin 0.2 AST 29 ALT 26 Alkaline Phosphatase 66 Creatine Kinase 115 Troponin I < 0.05 Total Protein 5.4 L Albumin 3.2 L TSH Urine Color Urine Clarity Urine pH Ur Specific [place] Urine Protein Urine Ketones Urine Blood Urine Nitrite Urine Bilirubin Urine Urobilinogen Ur Leukocyte Esterase Urine Glucose Salicylates Urine Opiates Screen Urine Methadone Screen Acetaminophen Ur Barbiturates Screen Ur Tricyclics Screen Ur Amphetamines Screen U Benzodiazepines Scrn Urine Cocaine Screen Ur THC Screen Ethyl Alcohol 195.0 06/22/20 06/22/20 06/22/20 21:00 21:00 21:00 WBC RBC Hgb Hct MCV MCH MCHC RDW Plt Count MPV Immature Gran % Neutrophils % Lymphocytes % Monocytes % Eosinophils % Basophils % Nucleated RBC % Absolute Neutrophils Absolute Lymphocytes Absolute Monocytes Absolute Eosinophils Absolute Basophils Sodium Potassium Chloride Carbon Dioxide Anion Gap BUN Creatinine Estimated GFR/1.73 m2 Glucose Calcium Magnesium Total Bilirubin AST ALT Alkaline Phosphatase Creatine Kinase Troponin I Total Protein Albumin TSH 1.37 Urine Color Urine Clarity Urine pH Ur Specific [place] Urine Protein Urine Ketones Urine Blood Urine Nitrite Urine Bilirubin Urine Urobilinogen Ur Leukocyte Esterase Urine Glucose Salicylates < 2.8 Urine Opiates Screen Urine Methadone Screen Acetaminophen 2 Ur Barbiturates Screen Ur Tricyclics Screen Ur Amphetamines Screen U Benzodiazepines Scrn Urine Cocaine Screen Ur THC Screen Ethyl Alcohol 06/22/20 06/22/20 22:10 22:10 WBC RBC Hgb Hct MCV MCH MCHC RDW Plt Count MPV Immature Gran % Neutrophils % Lymphocytes % Monocytes % Eosinophils % Basophils % Nucleated RBC % Absolute Neutrophils Absolute Lymphocytes Absolute Monocytes Absolute Eosinophils Absolute Basophils Sodium Potassium Chloride Carbon Dioxide Anion Gap BUN Creatinine Estimated GFR/1.73 m2 Glucose Calcium Magnesium Total Bilirubin AST ALT Alkaline Phosphatase Creatine Kinase Troponin I Total Protein Albumin TSH Urine Color Yellow Urine Clarity Clear Urine pH 6.0 Ur Specific [place] 1.015 Urine Protein Negative Urine Ketones Negative Urine Blood Negative Urine Nitrite Negative Urine Bilirubin Negative Urine Urobilinogen 0.2 Ur Leukocyte Esterase Negative Urine Glucose Negative Salicylates Urine Opiates Screen Negative Urine Methadone Screen Negative Acetaminophen Ur Barbiturates Screen Negative Ur Tricyclics Screen Negative Ur Amphetamines Screen Negative U Benzodiazepines Scrn Negative Urine Cocaine Screen Negative Ur THC Screen Positive A Ethyl Alcohol HPI General Date/Time Provider Initiated Documentation: 06/22/20 20:43 . HPI Narrative: Alondra byrd presents to the emergency department for evaluation after 911 was carried to the residence for reports of suicidal ideation. They found her intoxicated but cooperative. Evaluation revealed hypotension and tachycardia. pt does take blood pressure medications but denies overdosing on any of them and denies any illicit drug use. Related Data Home Medications Medication Instructions Recorded Confirmed estradiol 0.025 mg/24 hr 1 patch TD .COMPLEX 03/13/20 06/22/20 semiweekly transdermal patch hydroxyzine pamoate 25 mg capsule 25 mg PO Q4H PRN #30 cap 03/27/20 06/22/20 lisinopril 30 mg tablet 30 mg PO DAILY #30 tab 03/27/20 06/22/20 spironolactone 50 mg tablet 50 mg PO BID #60 tab 03/27/20 06/22/20 bupropion HCl 150 mg 24 hr tablet, 150 mg PO QAM #30 tab 04/30/20 06/22/20 extended release duloxetine 60 mg capsule,delayed 60 mg PO DAILY #30 cap 04/30/20 06/22/20 release prazosin 2 mg capsule 2 mg PO QPM #7 cap 04/30/20 06/22/20 prazosin 5 mg capsule 5 mg PO QPM #7 cap 04/30/20 06/22/20 vortioxetine [Trintellix] 5 mg PO DAILY 06/22/20 06/22/20 Previous Rx's Medication Instructions Recorded hydroxyzine pamoate 25 mg capsule 25 mg PO Q4H PRN #30 cap 03/27/20 lisinopril 30 mg tablet 30 mg PO DAILY #30 tab 03/27/20 spironolactone 50 mg tablet 50 mg PO BID #60 tab 03/27/20 bupropion HCl 150 mg 24 hr tablet, 150 mg PO QAM #30 tab 04/30/20 extended release duloxetine 60 mg capsule,delayed 60 mg PO DAILY #30 cap 04/30/20 release prazosin 2 mg capsule 2 mg PO QPM #7 cap 04/30/20 prazosin 5 mg capsule 5 mg PO QPM #7 cap 04/30/20 Allergies Allergy/AdvReac Type Severity Reaction Status Date / Time sulfamethoxazole Allergy Verified 06/22/20 20:45 [From Bactrim] trimethoprim [From Bactrim] Allergy Verified 06/22/20 20:45 General Stated Complaint: GenMedical JAY: 3 Review of Systems Constitutional Constitutional: Denies fever(s) ENT Ears, Nose, Mouth, and Throat: Denies vertigo and Denies dizziness Cardiovascular Cardiovascular: Denies chest pain and Denies dyspnea Respiratory Respiratory: Denies cough and Denies dyspnea Gastrointestinal Gastrointestinal: Denies abdominal pain Musculoskeletal Musculoskeletal: Denies arthralgias Neurologic Neurologic: Denies confusion, Denies vertigo and Denies dizziness Psychiatric Psychiatric: Denies confusion and Reports suicidal ideation [facility] Medical History Alcohol abuse Alcohol abuse Depression Hypertension Surgical History No pertinent past surgical history Family History (Updated 02/27/20 @ 13:42 by Melany Ruelas) Maternal Grandfather Alcohol abuse Diabetes Mother No problems noted. Sister Asthma Maternal Grandmother Diabetes Social History (Updated 03/13/20 @ 16:35 by Melany Ruelas) Smoking/Tobacco Use Status: Current-Occasional Tobacco Type: cigarettes Quit status: considering quitting Second Hand Exposure: Yes Smoking risk assessment performed?: Yes Alcohol Intake: current Alcohol Intake frequency: a few times a week Alcohol type: beer, wine and hard liquor Drug use: Current Sobriety Substance use type: marijuana Counseling given: No Counseling provided: none Details: no marijuana use in over a week Caregiver/Support person: No Household members: significant other Housing: house Communication Needs: Corrective Lenses Do you need help understanding health information?: Rarely Pets and animals: Yes Pets and animals: dog(s) Sexually active: Yes Do you think of yourself as: straight/heterosexual Current gender identity: trans [id number] What is your relationship status?: living with partner How often do you talk on the phone with friends or family?: once per week How often do you get together with friends or relatives?: decline to answer How often do you attend religion or rastafarian services?: decline to answer Do you belong to any clubs or organized social groups?: no Panel score (0-1 are the most socially isolated patients): 1 What type of physical activity do you participate in: weight lifting and other Details: CARDIO Duration: 45-60 minutes/day Frequency: 3-4 times per week Seatbelt use: always Helmet use: Yes Helmet use: sometimes Drive intox or ride w/intox delivery driver/customer service: No Do you feel safe at home: No Do you feel safe in your relationship?: No Exam Const General: cooperative, comfortable, no acute distress and disheveled Nutritional Appearance: average body habitus Orientation: alert, awake, oriented x3 and other (appearing intoxicated) HENUT Head: normal to inspection, normocephalic and atraumatic Mouth: oral mucosae normal Chest Chest: normal inspection of the chest Resp Effort & Inspection: normal respiratory effort Auscultation: clear to auscultation bilaterally Cardio Rate: tachycardic Rhythm: regular rhythm GI Inspection: normal to inspection Palpation: soft Auscultation: normal bowel sounds Skin General skin exam: no rashes or lesions noted Neuro General: no focal motor deficits Motor: muscle tone normal throughout Course Vital Signs Vital signs: Vital Signs Temperature 36.6 C 06/22/20 20:35 Pulse 133 H 06/22/20 20:35 Respiratory Rate 20 06/22/20 20:35 Blood Pressure 75/53 L 06/22/20 20:35 Pulse Oximetry 95 06/22/20 20:35 Temperature 36.6 C 06/22/20 20:35 Temperature Source Oral 06/22/20 20:35 Pulse 133 H 06/22/20 20:35 Respiratory Rate 20 06/22/20 20:35 Blood Pressure 75/53 L 06/22/20 20:35 Pulse Oximetry 95 06/22/20 20:35 Pain Level 0 06/22/20 20:35
[2020-06-22] MEDS: Normal Saline 1,000 ML 1000 ML IV ×3 (21:13→21:45)
[2020-06-22 21:14] LABS: Abs Immature Grans 0.01 10^3/uL (0.0-0.06); Absolute Basophil Count 0.01 10^3/uL (0.0-0.2); Absolute Eosinophil Count 0.07 10^3/uL (0.0-0.7); Absolute Lymphocyte Count 1.26 10^3/uL (1.2-3.4); Absolute Monocyte Count 0.25 10^3/uL (0.1-0.8); Basophils % 0.2; Eosinophils % 1.2; HCT 29.6 % (36.0-46.0); HGB 10.5 g/dL (11.2-15.7); Immature Grans % 0.2; Lymphocytes % 21.4; MCH 34.8 pg (27.0-33.0); MCHC 35.5 % (32.0-36.0); MPV 10.1 fL (8.0-11.0); Monocytes % 4.2; Neutrophils % 72.8; Nucleated RBC 0 %; Platelet Count 164 10^3/uL (130-400); RBC 3.02 10^6/uL (3.93-5.22); RDW 11.2 % (11.7-14.6); RDW-SD 39.3 fL
[2020-06-22 21:32] LABS: ALT 26 U/L (14-59); AST 29 U/L (15-37); Albumin 3.2 g/dL (3.4-5.0); Alkaline Phosphatase 66 U/L (46-116); Anion Gap 12.1 mmol/L (3-11); BUN 17 mg/dL (7-18); Bilirubin, Total 0.2 mg/dL (0.2-1.0); CO2 18.9 mmol/L (21.0-32.0); CREATININE 1.35 mg/dL (0.55-1.02); Chloride 108 mmol/L (98-107); Estimated GFR 47.04 (mL/min/1.73m2); Glucose 125 mg/dL (74-106); Magnesium 1.5 mg/dL (1.8-2.4); Potassium 3.5 mmol/L (3.5-5.1); Sodium 139 mmol/L (136-145); Total Protein 5.4 g/dL (6.4-8.2)
[2020-06-22 21:38] LABS: Salicylate < 2.8 mg/dL (2.8-20.0); Troponin I < 0.05 ng/mL (<0.06)
[2020-06-22 21:44] LABS: Acetaminophen 2 ug/mL (10-30)
[2020-06-22 21:53] LABS: TSH 1.37 uIU/mL (0.36-3.74)
--- NOTE | 2020-06-22 21:57 | CMSP_ITS ---
- If Service Date Differs Date of service: 06/22/20 Time of Service: 21:57 Care Management Safety Plan Ayad is a 29 year old transgender male who identifies as female and prefers to be called Brianna. Brianna recently moved from [place] in December. She has a history of bipolar disorder, SI, PTSD, substance use disorder and depression. She has been hospitalized in psychiatric facilities in [place] as well as at the [facility]. Brianna also reports auditory hallucinations. Brianna has a significant other named Jamie. Per provider, Brianna presented to the ED after EMS was called, intoxicated and verbalizing SI. Reportedly her boyfriend Jamie informed her that he wishes to break up with her. Brianna currently denies SI. She will be screened by [facility] crisis screener when medically cleared. CM will respond to ED to assess patient after patient has been medically cleared and assessed by screener. If screener deems patient meets criteria for psychiatric stabilization CM will facilitate interdepartmental huddle with [facility] screener for safety planning considerations and meet with patient to review [facility] policy and safety plan, establish individual wishes for treatment and maintain patient rights. In the interim; please note safety plan below to guide patient care while aw aiting further assessment in the ED. SAFETY PLAN: 1. Will remain on suicide precautions. May wear hospital ines until medically cleared. 2. Will remain in room under direct supervision of one-on-one staff at all times provided by VALENTIN, [employer] core assembly supervisor. 3. May have paper cups, plates, finger foods as well as a cardboard spoon with which to eat meals. 4. Follow [facility] Management of the Admitted Behavioral Health Patient policy. 5. Comfort bath system only. 6. No personal belongings 7. No visitors. 8. Phone contact limited to mother. 9. Bathroom privileges. While in ED must be accompanied by staff. If moved to [facility] may use bathroom in room. 10. Due to VOLUNTARY status, if patient wishes to leave [facility], the [facility] die out worker must be contacted to re-evaluate patient prior to patient exiting the building. If deemed appropriate for inpatient psychiatric care, safety plan will be established with patient, and care team, to adhere to patient goals, identify restrictions based on behavioral status, address nutrition, and determine allowed personal belongings, tools for hygiene and personal care. As well plan will determine level of activity including ambulation, level of supervision, visitors, and determine privileges based on level of acuity, behaviors and level of engagement by patient
[2020-06-22 22:10] LABS: Creatine Kinase 115 U/L (26-192)
[2020-06-22 22:16] LABS: Bilirubin Negative (Negative); Blood Negative (Negative); Clarity Clear (Clear); Glucose Negative (Negative); Ketones Negative (Negative); Leukocyte Esterase Negative (Negative); Nitrite Negative (Negative); Specific Gravity 1.015 (1.005-1.025); Urobilinogen 0.2 EU/dL (Up TO 0.2)
[2020-06-22 22:28] LABS: *AMPHETAMINES SCREEN URINE Negative (Negative); *BARBITURATES SCREEN URINE Negative (Negative); *BENZODIAZEPINES SCREEN URINE Negative (Negative); Cannabinoids THC POSITIVE (Negative); Cocaine Screen,Urine Negative (Negative); METHADONE URINE SCREEN Negative (Negative); OPIATES URINE SCREEN Negative (Negative)
[2020-06-22 22:33] LABS: Tricyclic Antidepressants Negative (Negative)
--- NOTE | 2020-06-22 23:05 | W.PM.HP.N ---
Date of service: 06/22/20 Time of Service: 23:05 Assessment and Plan Assessment and plan (1) Suicidal thoughts: Status: Acute Assessment and plan: Suicidal ideation in setting of alcohol intoxication. Will have MH eval once sober, and will place on CIWA. The hypotension is striking. I suspect this is due to continued use of antihypertensives in setting of new anemia, but this is speculative at this point. Will transfuse, hold various meds that could lower BP and will give single dose hydrocortisone to r/o adrenal insufficiency. The anemia is of unknown etiology. Will check stools and begin lab w/u. As above will transfuse 2 units. History of Present Illness History of Present Illness Chief Complaint: suicidal Narrative: 29 [id number] transgender patient, drinking tonight and verbalized SI to BF (per ER report); denies SI to me. In ER w/u of note for severe but asymptomatic hypotension, Hct 29. Note has dx of hypertension, continues on tx for same. Got 4 L NS w/o improvement in BP. EtOH 193. Denies melena or bleeding of any kind. Denies h/o adrenal insufficiency or chronic steroid use. Denies overdose of BP meds. Admitted for further eval and pending psych eval once no longer intoxicated. Review of Systems All systems reviewed & are unremarkable except as noted in HPI and below PFSH Medical History Alcohol abuse Alcohol abuse Depression Hypertension Surgical History No pertinent past surgical history Family History Maternal Grandfather Alcohol abuse Diabetes Mother No problems noted. Sister Asthma Maternal Grandmother Diabetes Social History Smoking/Tobacco Use Status: Current-Occasional Tobacco Type: cigarettes Quit status: considering quitting Second Hand Exposure: Yes Smoking risk assessment performed?: Yes Alcohol Intake: current Alcohol Intake frequency: a few times a week Alcohol type: beer, wine and hard liquor Drug use: Current Sobriety Substance use type: marijuana Counseling given: No Counseling provided: none Details: no marijuana use in over a week Caregiver/Support person: No Household members: significant other Housing: house Communication Needs: Corrective Lenses Do you need help understanding health information?: Rarely Pets and animals: Yes Pets and animals: dog(s) Sexually active: Yes Do you think of yourself as: straight/heterosexual Current gender identity: trans [id number] What is your relationship status?: living with partner How often do you talk on the phone with friends or family?: once per week How often do you get together with friends or relatives?: decline to answer How often do you attend scientology or scientologist services?: decline to answer Do you belong to any clubs or organized social groups?: no Panel score (0-1 are the most socially isolated patients): 1 What type of physical activity do you participate in: weight lifting and other Details: CARDIO Duration: 45-60 minutes/day Frequency: 3-4 times per week Seatbelt use: always Helmet use: Yes Helmet use: sometimes Drive intox or ride w/intox yard truck driver: No Do you feel safe at home: No Do you feel safe in your relationship?: No Meds Home Medications and Allergies Home Medications Medication Instructions Recorded Confirmed Type estradiol 0.025 mg/24 hr 1 patch TD .COMPLEX 03/13/20 06/22/20 History semiweekly transdermal patch hydroxyzine pamoate 25 mg capsule 25 mg PO Q4H PRN #30 cap 03/27/20 06/22/20 Rx lisinopril 30 mg tablet 30 mg PO DAILY #30 tab 03/27/20 06/22/20 Rx spironolactone 50 mg tablet 50 mg PO BID #60 tab 03/27/20 06/22/20 Rx bupropion HCl 150 mg 24 hr tablet, 150 mg PO QAM #30 tab 04/30/20 06/22/20 Rx extended release duloxetine 60 mg capsule,delayed 60 mg PO DAILY #30 cap 04/30/20 06/22/20 Rx release prazosin 2 mg capsule 2 mg PO QPM #7 cap 04/30/20 06/22/20 Rx prazosin 5 mg capsule 5 mg PO QPM #7 cap 04/30/20 06/22/20 Rx vortioxetine [Trintellix] 5 mg PO DAILY 06/22/20 06/22/20 History Allergies Allergy/AdvReac Type Severity Reaction Status Date / Time sulfamethoxazole Allergy Verified 06/22/20 20:45 [From Bactrim] trimethoprim [From Bactrim] Allergy Verified 06/22/20 20:45 Exam Narrative Exam Narrative: 63/34 (68/sys manual to my exam), 101, 36.6, 15, 93% RA. HEENT atraumatic; neck supple; lungs clear; heart tachy/regular; abdomen soft and NT; rectal declines; extremities w/o edema, neuro Ox3, mentating well, nonfocal Results Labs Result diagrams: 06/22/20 21:00 06/22/20 21:00 Labs: Laboratory Results - last 24 hr 06/22/20 06/22/20 06/22/20 20:49 21:00 21:00 WBC 5.90 RBC 3.02 L Hgb 10.5 L Hct 29.6 L MCV 98.0 H MCH 34.8 H MCHC 35.5 RDW 11.2 L Plt Count 164 MPV 10.1 Immature Gran % 0.2 Neutrophils % 72.8 Lymphocytes % 21.4 Monocytes % 4.2 Eosinophils % 1.2 Basophils % 0.2 Nucleated RBC % 0 Absolute Neutrophils 4.30 Absolute Lymphocytes 1.26 Absolute Monocytes 0.25 Absolute Eosinophils 0.07 Absolute Basophils 0.01 Sodium 139 Potassium 3.5 Chloride 108 H Carbon Dioxide 18.9 L Anion Gap 12.1 H BUN 17 Creatinine 1.35 H Estimated GFR/1.73 m2 47.04 Glucose 125 H Calcium 8.0 L Magnesium 1.5 L Total Bilirubin 0.2 AST 29 ALT 26 Alkaline Phosphatase 66 Creatine Kinase 115 Troponin I < 0.05 Total Protein 5.4 L Albumin 3.2 L TSH Urine Color Urine Clarity Urine pH Ur Specific [place] Urine Protein Urine Ketones Urine Blood Urine Nitrite Urine Bilirubin Urine Urobilinogen Ur Leukocyte Esterase Urine Glucose Salicylates Urine Opiates Screen Urine Methadone Screen Acetaminophen Ur Barbiturates Screen Ur Tricyclics Screen Ur Amphetamines Screen U Benzodiazepines Scrn Urine Cocaine Screen Ur THC Screen Ethyl Alcohol 195.0 06/22/20 06/22/20 06/22/20 21:00 21:00 21:00 WBC RBC Hgb Hct MCV MCH MCHC RDW Plt Count MPV Immature Gran % Neutrophils % Lymphocytes % Monocytes % Eosinophils % Basophils % Nucleated RBC % Absolute Neutrophils Absolute Lymphocytes Absolute Monocytes Absolute Eosinophils Absolute Basophils Sodium Potassium Chloride Carbon Dioxide Anion Gap BUN Creatinine Estimated GFR/1.73 m2 Glucose Calcium Magnesium Total Bilirubin AST ALT Alkaline Phosphatase Creatine Kinase Troponin I Total Protein Albumin TSH 1.37 Urine Color Urine Clarity Urine pH Ur Specific [place] Urine Protein Urine Ketones Urine Blood Urine Nitrite Urine Bilirubin Urine Urobilinogen Ur Leukocyte Esterase Urine Glucose Salicylates < 2.8 Urine Opiates Screen Urine Methadone Screen Acetaminophen 2 Ur Barbiturates Screen Ur Tricyclics Screen Ur Amphetamines Screen U Benzodiazepines Scrn Urine Cocaine Screen Ur THC Screen Ethyl Alcohol 06/22/20 06/22/20 22:10 22:10 WBC RBC Hgb Hct MCV MCH MCHC RDW Plt Count MPV Immature Gran % Neutrophils % Lymphocytes % Monocytes % Eosinophils % Basophils % Nucleated RBC % Absolute Neutrophils Absolute Lymphocytes Absolute Monocytes Absolute Eosinophils Absolute Basophils Sodium Potassium Chloride Carbon Dioxide Anion Gap BUN Creatinine Estimated GFR/1.73 m2 Glucose Calcium Magnesium Total Bilirubin AST ALT Alkaline Phosphatase Creatine Kinase Troponin I Total Protein Albumin TSH Urine Color Yellow Urine Clarity Clear Urine pH 6.0 Ur Specific [place] 1.015 Urine Protein Negative Urine Ketones Negative Urine Blood Negative Urine Nitrite Negative Urine Bilirubin Negative Urine Urobilinogen 0.2 Ur Leukocyte Esterase Negative Urine Glucose Negative Salicylates Urine Opiates Screen Negative Urine Methadone Screen Negative Acetaminophen Ur Barbiturates Screen Negative Ur Tricyclics Screen Negative Ur Amphetamines Screen Negative U Benzodiazepines Scrn Negative Urine Cocaine Screen Negative Ur THC Screen Positive A Ethyl Alcohol Last Vital Signs Temp 36.6 C 06/22/20 20:35 Pulse 101 H 06/22/20 22:46 Resp 15 06/22/20 22:46 BP 63/34 L 06/22/20 22:46 Pulse Ox 93 06/22/20 22:46 COVID-19 Screening Have you, or household traveled for leisure in last 14 days?: No Had IN PERSON contact w/suspected or confirmed C-19 person: No
[2020-06-22 23:42] LABS: Reticulocyte 1.3 % (0.5-2.4)
[2020-06-22] MEDS: Hydrocortisone SOD SUC. 100 MG VIAL IVP (23:46)
[2020-06-22 23:53] LABS: Iron 67 ug/dL (50-170); Total Iron Binding Capacity 242 ug/dL (250-450)
[2020-06-23] VITALS (41 sets, daily range): BP systolic 80–123; BP diastolic 41–86; PULSE 86–144; RESP 13–24; TEMP 35.9–37; O2SAT 94–99
[2020-06-23 00:20] LABS: Ferritin 91 ng/mL (8-252); Folate 8.7 ng/mL (8.6-20.0); Vitamin B12 329 pg/mL (193-986)
[2020-06-23 00:21] LABS: ETHANOL BLOOD 130.3 mg/dL (<3)
[2020-06-23 00:23] LABS: HCT 28.7 % (36.0-46.0); HGB 10.2 g/dL (11.2-15.7)
[2020-06-23 07:58] LABS: Anion Gap 9.5 mmol/L (3-11); BUN 10 mg/dL (7-18); CO2 21.5 mmol/L (21.0-32.0); CREATININE 1.12 mg/dL (0.55-1.02); Calcium 8.4 mg/dL (8.5-10.1); Chloride 108 mmol/L (98-107); Estimated GFR 58.35 (mL/min/1.73m2); Glucose 89 mg/dL (74-106); Magnesium 1.4 mg/dL (1.8-2.4); Potassium 3.9 mmol/L (3.5-5.1); Sodium 139 mmol/L (136-145)
[2020-06-23 08:11] LABS: ETHANOL BLOOD < 3.0 mg/dL (<3)
--- NOTE | 2020-06-23 08:18 | W.PM.PROGNOT ---
Date of Service Date of service: 06/23/20 Time of Service: 10:53 Assessment and Plan Assessment and plan (1) Hypotension: Status: Acute Assessment and plan: Due to dehydration due to likely excessive doses of spironolactone in addition to being on lisinopril + diarrhea. It is not clear to what extent her acute anemia is contributing. Hypotension has mostly resolved with IVF and blood transfusion as well as cessation of antihypertensives, though the patient remains orthostatic. Continue IV hydration. Monitor H/H. Look for bleeding/address diarrhea. (2) Acute anemia: Status: Acute Assessment and plan: s/p transfusion of 1 unit of pRBCS. Per labs, has evidence of B12 and folic acid deficiency - replete. The patient is considering an HIV test and will get back to me. She had a negative one in February at [facility], per patient. No bleeding at home, per patient, and no witnessed bleeding here. Await hemoccult. (3) Dehydration: Status: Acute Assessment and plan: Ongoing. Likely due to excessive doses of spironolactone, which was used for the hormonal effects rather than for BP management, per patient. Continue IVF and hold spironolactone. Should the patient remain on spironolactone, it would need to be at a significantly decreased dose. (4) Diarrhea: Status: Acute Assessment and plan: Await C.Diff, giardia/cryptosporidia tests. The patient is considering an HIV test. (5) Suicidal thoughts: Status: Resolved Assessment and plan: Await mental health consult. (6) Acute kidney injury superimposed on chronic kidney disease: Status: Acute Assessment and plan: In setting of dehydration while on aldactone in addition to being on lisinopril. (7) Alcohol abuse: Status: Chronic Assessment and plan: Not showing signs of acute withdrawal. Provide thiamine, MVI. Monitor on CIWA. (8) Depression: Status: Chronic Assessment and plan: C/s mental health. Qualifiers: Depression Type: major depressive disorder Major depression recurrence: recurrent Active/Remission status: currently active Major depression episode severity: severe Psychotic features: without psychotic features Qualified Code(s): F33.2 - Major depressive disorder, recurrent severe without psychotic features (9) PTSD (post-traumatic stress disorder): Status: Chronic Assessment and plan: as above (10) DVT prophylaxis: Status: Acute Assessment and plan: Encourage OOB. DVT ppx not required in an ambulatory 29 year old patient. (11) Discharge planning issues: Status: Acute Assessment and plan: Full code Transfer out of ICU. Subjective Subjective Interval history since last seen: Brianna states that she is quite anxious this morning and she would like to make a phone call to her boyfriend (who she is not sure is her boyfriend). She denies dizziness, chest pain, shortness of breath, nausea, abdominal pain. No gross bleeding here - and no bleeding at home. Got 1 unit of pRBCs overnight. BP 106/68. Still tachycardic even at rest. HR goes up to 140s with any movement. Orthostatic: 106/67 with HR 124 (laying), 97/61 with HR 130 sitting, 99/64 with HR 135 standing. Diarrhea overnight - foul smelling, but no gross blood. unable to test hemoccult due to being mixed with urine. CIWA 0, 1. Denies SI/HI. Awaiting mental health consult. UOP 1000 cc. Exam Narrative Exam Narrative: General: pleasant, anxious appearing female HEENT: EOMI, dry MM Heart: RRR, tachycardic, no m/r/g Lungs: CTAB Abdomen: soft, nontender, nondistended Extremities: no e/c/c BLEs, 2+ pedal pulses Objective Last Vital Signs Temp 35.9 C L 06/23/20 07:59 Pulse 114 H 06/23/20 08:02 Resp 15 06/23/20 08:00 BP 115/71 06/23/20 08:00 Pulse Ox 97 06/23/20 08:02 Laboratory Results - last 24 hr 06/22/20 06/22/20 06/22/20 20:49 21:00 21:00 WBC 5.90 RBC 3.02 L Hgb 10.5 L Hct 29.6 L MCV 98.0 H MCH 34.8 H MCHC 35.5 RDW 11.2 L Plt Count 164 MPV 10.1 Reticulocyte % (Auto) Immature Gran % 0.2 Neutrophils % 72.8 Lymphocytes % 21.4 Monocytes % 4.2 Eosinophils % 1.2 Basophils % 0.2 Nucleated RBC % 0 Absolute Neutrophils 4.30 Absolute Lymphocytes 1.26 Absolute Monocytes 0.25 Absolute Eosinophils 0.07 Absolute Basophils 0.01 Sodium 139 Potassium 3.5 Chloride 108 H Carbon Dioxide 18.9 L Anion Gap 12.1 H BUN 17 Creatinine 1.35 H Estimated GFR/1.73 m2 47.04 Glucose 125 H Calcium 8.0 L Magnesium 1.5 L Iron TIBC Ferritin Total Bilirubin 0.2 AST 29 ALT 26 Alkaline Phosphatase 66 Creatine Kinase 115 Troponin I < 0.05 Total Protein 5.4 L Albumin 3.2 L Vitamin B12 Folate TSH Urine Color Urine Clarity Urine pH Ur Specific [place] Urine Protein Urine Ketones Urine Blood Urine Nitrite Urine Bilirubin Urine Urobilinogen Ur Leukocyte Esterase Urine Glucose Salicylates Urine Opiates Screen Urine Methadone Screen Acetaminophen Ur Barbiturates Screen Ur Tricyclics Screen Ur Amphetamines Screen U Benzodiazepines Scrn Urine Cocaine Screen Ur THC Screen Ethyl Alcohol 195.0 Patient ABO/Rh Antibody Screen Crossmatch 06/22/20 06/22/20 06/22/20 21:00 21:00 21:00 WBC RBC Hgb Hct MCV MCH MCHC RDW Plt Count MPV Reticulocyte % (Auto) Immature Gran % Neutrophils % Lymphocytes % Monocytes % Eosinophils % Basophils % Nucleated RBC % Absolute Neutrophils Absolute Lymphocytes Absolute Monocytes Absolute Eosinophils Absolute Basophils Sodium Potassium Chloride Carbon Dioxide Anion Gap BUN Creatinine Estimated GFR/1.73 m2 Glucose Calcium Magnesium Iron TIBC Ferritin Total Bilirubin AST ALT Alkaline Phosphatase Creatine Kinase Troponin I Total Protein Albumin Vitamin B12 Folate TSH 1.37 Urine Color Urine Clarity Urine pH Ur Specific [place] Urine Protein Urine Ketones Urine Blood Urine Nitrite Urine Bilirubin Urine Urobilinogen Ur Leukocyte Esterase Urine Glucose Salicylates < 2.8 Urine Opiates Screen Urine Methadone Screen Acetaminophen 2 Ur Barbiturates Screen Ur Tricyclics Screen Ur Amphetamines Screen U Benzodiazepines Scrn Urine Cocaine Screen Ur THC Screen Ethyl Alcohol Patient ABO/Rh Antibody Screen Crossmatch 06/22/20 06/22/20 06/22/20 22:10 22:10 23:12 WBC RBC Hgb Hct MCV MCH MCHC RDW Plt Count MPV Reticulocyte % (Auto) Immature Gran % Neutrophils % Lymphocytes % Monocytes % Eosinophils % Basophils % Nucleated RBC % Absolute Neutrophils Absolute Lymphocytes Absolute Monocytes Absolute Eosinophils Absolute Basophils Sodium Potassium Chloride Carbon Dioxide Anion Gap BUN Creatinine Estimated GFR/1.73 m2 Glucose Calcium Magnesium Iron 67 TIBC 242 L Ferritin Total Bilirubin AST ALT Alkaline Phosphatase Creatine Kinase Troponin I Total Protein Albumin Vitamin B12 Folate TSH Urine Color Yellow Urine Clarity Clear Urine pH 6.0 Ur Specific [place] 1.015 Urine Protein Negative Urine Ketones Negative Urine Blood Negative Urine Nitrite Negative Urine Bilirubin Negative Urine Urobilinogen 0.2 Ur Leukocyte Esterase Negative Urine Glucose Negative Salicylates Urine Opiates Screen Negative Urine Methadone Screen Negative Acetaminophen Ur Barbiturates Screen Negative Ur Tricyclics Screen Negative Ur Amphetamines Screen Negative U Benzodiazepines Scrn Negative Urine Cocaine Screen Negative Ur THC Screen Positive A Ethyl Alcohol Patient ABO/Rh Antibody Screen Crossmatch 06/22/20 06/22/20 06/22/20 23:12 23:12 23:12 WBC RBC Hgb Hct MCV MCH MCHC RDW Plt Count MPV Reticulocyte % (Auto) 1.3 Immature Gran % Neutrophils % Lymphocytes % Monocytes % Eosinophils % Basophils % Nucleated RBC % Absolute Neutrophils Absolute Lymphocytes Absolute Monocytes Absolute Eosinophils Absolute Basophils Sodium Potassium Chloride Carbon Dioxide Anion Gap BUN Creatinine Estimated GFR/1.73 m2 Glucose Calcium Magnesium Iron TIBC Ferritin 91 Total Bilirubin AST ALT Alkaline Phosphatase Creatine Kinase Troponin I Total Protein Albumin Vitamin B12 329 Folate 8.7 TSH Urine Color Urine Clarity Urine pH Ur Specific [place] Urine Protein Urine Ketones Urine Blood Urine Nitrite Urine Bilirubin Urine Urobilinogen Ur Leukocyte Esterase Urine Glucose Salicylates Urine Opiates Screen Urine Methadone Screen Acetaminophen Ur Barbiturates Screen Ur Tricyclics Screen Ur Amphetamines Screen U Benzodiazepines Scrn Urine Cocaine Screen Ur THC Screen Ethyl Alcohol Patient ABO/Rh O Positive Antibody Screen Negative Crossmatch See Detail 06/23/20 06/23/20 06/23/20 00:00 00:15 07:38 WBC RBC Hgb 10.2 L Hct 28.7 L MCV MCH MCHC RDW Plt Count MPV Reticulocyte % (Auto) Immature Gran % Neutrophils % Lymphocytes % Monocytes % Eosinophils % Basophils % Nucleated RBC % Absolute Neutrophils Absolute Lymphocytes Absolute Monocytes Absolute Eosinophils Absolute Basophils Sodium Potassium Chloride Carbon Dioxide Anion Gap BUN Creatinine Estimated GFR/1.73 m2 Glucose Calcium Magnesium 1.4 L Iron TIBC Ferritin Total Bilirubin AST ALT Alkaline Phosphatase Creatine Kinase Troponin I Total Protein Albumin Vitamin B12 Folate TSH Urine Color Urine Clarity Urine pH Ur Specific [place] Urine Protein Urine Ketones Urine Blood Urine Nitrite Urine Bilirubin Urine Urobilinogen Ur Leukocyte Esterase Urine Glucose Salicylates Urine Opiates Screen Urine Methadone Screen Acetaminophen Ur Barbiturates Screen Ur Tricyclics Screen Ur Amphetamines Screen U Benzodiazepines Scrn Urine Cocaine Screen Ur THC Screen Ethyl Alcohol 130.3 < 3.0 Patient ABO/Rh Antibody Screen Crossmatch 06/23/20 07:38 WBC RBC Hgb Hct MCV MCH MCHC RDW Plt Count MPV Reticulocyte % (Auto) Immature Gran % Neutrophils % Lymphocytes % Monocytes % Eosinophils % Basophils % Nucleated RBC % Absolute Neutrophils Absolute Lymphocytes Absolute Monocytes Absolute Eosinophils Absolute Basophils Sodium 139 Potassium 3.9 Chloride 108 H Carbon Dioxide 21.5 Anion Gap 9.5 BUN 10 D Creatinine 1.12 H Estimated GFR/1.73 m2 58.35 Glucose 89 Calcium 8.4 L Magnesium Iron TIBC Ferritin Total Bilirubin AST ALT Alkaline Phosphatase Creatine Kinase Troponin I Total Protein Albumin Vitamin B12 Folate TSH Urine Color Urine Clarity Urine pH Ur Specific [place] Urine Protein Urine Ketones Urine Blood Urine Nitrite Urine Bilirubin Urine Urobilinogen Ur Leukocyte Esterase Urine Glucose Salicylates Urine Opiates Screen Urine Methadone Screen Acetaminophen Ur Barbiturates Screen Ur Tricyclics Screen Ur Amphetamines Screen U Benzodiazepines Scrn Urine Cocaine Screen Ur THC Screen Ethyl Alcohol Patient ABO/Rh Antibody Screen Crossmatch
--- NOTE | 2020-06-23 08:22 | INITIAL_ITS ---
- If Service Date Differs Date of service: 06/23/20 Time of Service: 08:22 Care Management Initial Assess REASON FOR HOSPITALIZATION:: Hypotension and suicidal. PAST MEDICAL HISTORY/PAST SURGICAL HISTORY:: Medical History: Alcohol abuse, Depression, and Hypertension. Surgical History: No pertinent past surgical history. PREVIOUS FUNCTIONAL STATUS/SOCIAL/FAMILY SUPPORTS:: Brianna is a 29 year old transgender female who moved from [place] to [facility] in December of this year. She lives with her partner, Jamie, and their two dogs. 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 She learned to play the piano at the age of [age] and music has been a form of relaxation for her since. Brianna shares she is very close to her mom who lives in [place]. She also names her partner Jamie as a source of support. Brianna is independent with her ADLs at baseline. CURRENT FUNCTIONAL STATUS:: Brianna is sitting up in bed when CM comes to meet with her. She is pleasant and talkative. Brianna met with Roseline, [facility] scale assembly set up worker, via zoom today, due to having made suicidal comments while under the influence of alcohol last evening. Brianna denied current suicidal thoughts, intent or plan, and was deemed inappropriate for a psychiatric hospitalization. CM spoke with Dr. Enrique, hospitalist, who agreed that suicide precautions could be discontin ued at this time. Brianna will, however, remain at [facility] for medical reasons. CM will continue to follow. ADVANCE DIRECTIVES:: None on file; CM provided form for patient to complete at her leisure. Has patient been provided with info about the portal/API?: Yes Did the patient sign up for the portal?: Yes CODE STATUS:: Full Code INSURANCE COVERAGE / FINANCIAL ISSUES:: Medicaid. CURRENT HOME/COMMUNITY SERVICES/EQUIPMENT:: No medical equipment. Brianna sees Margaret Lozano at [facility] for therapy. She also has an upcoming appointment on Friday, June 26, 2020, with Dr. Sharp ([facility] psychiatrist) for medication management. PRIMARY CARE PHYSICIAN:: Nelia Quevedo NP POTENTIAL DISCHARGE NEEDS:: Folow up appointment with PCP. PATIENT/FAMILY EDUCATION NEEDS:: Review discharge instructions and follow up plan of care. ANTICIPATED BARRIERS TO DISCHARGE:: None. TRANSPORTATION:: Via private vehicle with partner, Jamie. PLAN:: Anticipate Brianna will discharge home when medically cleared by provider. She will follow up with her PCP, [facility] providers, and discharge plan of care as directed. Jamie will drive her home via private vehicle when ready. CM will continue to follow.
[2020-06-23] MEDS: THIAMINE 100 MG in Normal Saline 100 ML 200 MG IVPB (08:42)
[2020-06-23] MEDS: Normal Saline 1,000 ML 125 ML IV ×2 (08:42→17:00)
[2020-06-23] MEDS: DULoxetine 30 MG CAP 60 MG PO (08:43)
[2020-06-23] MEDS: Pantoprazole 40 MG VIAL IVP ×2 (08:43→19:40)
[2020-06-23] MEDS: Multivitamin w/Minerals TAB 1 TAB PO (08:43)
[2020-06-23] MEDS: Cyanocobalamin 500 MCG TAB 1000 MCG PO (08:44)
[2020-06-23] MEDS: Folic Acid 1 MG TAB PO (08:44)
[2020-06-23] MEDS: Thiamine 100 MG TAB PO (08:44)
[2020-06-23] MEDS: buPROPion-XL 150 MG TABCR PO (08:44)
[2020-06-23] MEDS: Normal Saline Flush 10 ML SYR IVP ×2 (08:44→19:41)
[2020-06-23] MEDS: MAGNESIUM SULFATE 4 GM/100 ML BAG IVPB (08:59)
[2020-06-23 09:10] LABS: HCT 36.6 % (36.0-46.0); HGB 12.9 g/dL (11.2-15.7)
--- NOTE | 2020-06-23 14:21 | PDOC.MHCN ---
Date of service: 06/23/20 Time of Service: 14:21 Mental Health Crisis Note Precipitating Factors Patient was brought to ED by ambulance due to intoxication anf suicidal ideation. She had been drinking and wasn't feeling well. Eulalia is now on the med surg [facility] and has a suicidal safety plan in place. She now denies SI and is not seeking inpatient treatment. Disposition BEHAVIOR: She iscalm and cooperative. EYE CONTACT: She connects to the Zoom interview MOOD: her mood is broad though she claims some mild depression AFFECT: She has a congruent affect no tears APPETITE: Eating well SLEEP(trouble falling/staying asleep: reports no problem Plan Patient will return to home once her medical condition is determined. She has an appointment with Dr Sharp on Thursday and her therapist Margaret Lozano on Thursday, both from [facility]> She will be contacted tomorrow for follow up by [facility] Embedded services worker for further referral to possible case management. Signature Clinician's Name/Title: ARIES Cordero [facility] Emergency Services Clinician
[2020-06-23 16:53] LABS: C Diff PCR Negative (Negative)
[2020-06-24] MEDS: Normal Saline 1,000 ML 125 ML IV ×2 (01:19→09:22)
[2020-06-24 02:55] VITALS: BP 130/90; PULSE 88; RESP 16; TEMP 36.6; O2SAT 98
[2020-06-24 07:08] VITALS: PULSE 96
[2020-06-24 07:26] LABS: Abs Immature Grans 0.01 10^3/uL (0.0-0.06); Absolute Basophil Count 0.03 10^3/uL (0.0-0.2); Absolute Eosinophil Count 0.14 10^3/uL (0.0-0.7); Absolute Lymphocyte Count 1.39 10^3/uL (1.2-3.4); Absolute Monocyte Count 0.33 10^3/uL (0.1-0.8); Absolute Neutrophil Count 3.18 10^3/uL (1.2-6.7); Basophils % 0.6; Eosinophils % 2.8; HCT 38.2 % (36.0-46.0); HGB 13.8 g/dL (11.2-15.7); Immature Grans % 0.2; Lymphocytes % 27.4; MCH 34.2 pg (27.0-33.0); MCHC 36.1 % (32.0-36.0); MCV 94.6 fL (80-95); MPV 10.2 fL (8.0-11.0); Monocytes % 6.5; Neutrophils % 62.5; Nucleated RBC 0 %; Platelet Count 182 10^3/uL (130-400); RBC 4.04 10^6/uL (3.93-5.22); RDW 12.1 % (11.7-14.6); RDW-SD 42.7 fL; WBC 5.08 10^3/uL (4.4-10.8)
[2020-06-24] MEDS: Multivitamin w/Minerals TAB 1 TAB PO (07:47)
[2020-06-24] MEDS: buPROPion-XL 150 MG TABCR PO (07:47)
[2020-06-24] MEDS: DULoxetine 30 MG CAP 60 MG PO (07:47)
[2020-06-24] MEDS: Cyanocobalamin 500 MCG TAB 1000 MCG PO (07:48)
[2020-06-24] MEDS: Pantoprazole 40 MG VIAL IVP (07:48)
[2020-06-24] MEDS: Thiamine 100 MG TAB PO (07:48)
[2020-06-24] MEDS: Folic Acid 1 MG TAB PO (07:48)
[2020-06-24] MEDS: Normal Saline Flush 10 ML SYR IVP (07:48)
[2020-06-24 07:49] VITALS: BP 123/82; PULSE 81; RESP 17; TEMP 36.5; O2SAT 99
[2020-06-24 08:18] LABS: Anion Gap 7.5 mmol/L (3-11); BUN 9 mg/dL (7-18); CO2 26.5 mmol/L (21.0-32.0); CREATININE 0.98 mg/dL (0.55-1.02); Chloride 106 mmol/L (98-107); Glucose 103 mg/dL (74-106); Magnesium 1.8 mg/dL (1.8-2.4); Potassium 4.1 mmol/L (3.5-5.1); Sodium 140 mmol/L (136-145)
[2020-06-24 08:25] VITALS: BP 129/59; BP 130/63; BP 95/59; PULSE 86; PULSE 88
[2020-06-24 09:16] LABS: COVID-19 RT-PCR UVMMC Result Negative (Negative)
[2020-06-24 11:12] VITALS: BP 124/85; PULSE 88; RESP 17; TEMP 36.2; O2SAT 100
--- NOTE | 2020-06-24 11:49 | DSE_ITS ---
Date of service: 06/24/20 Time of Service: 11:49 DS: Diagnosis Discharge Diagnosis (1) Hypotension: Status: Acute (2) Acute anemia: Status: Acute (3) Dehydration: Status: Acute (4) Diarrhea: Status: Acute (5) Suicidal thoughts: Status: Resolved (6) Acute kidney injury superimposed on chronic kidney disease: Status: Acute (7) Alcohol abuse: Status: Chronic (8) Depression: Status: Chronic (9) PTSD (post-traumatic stress disorder): Status: Chronic (10) DVT prophylaxis: Status: Inactive (11) Discharge planning issues: Status: Inactive Discharge Plan Disposition Patient Disposition: HOME Condition: Improving Discharge Details Reason For Visit: SUICIDAL,HYPOTENSION Admit Date/Time: 06/22/20 23:19 Admit Provider: Trevor Rose Attending Provider: Trevor Rose Primary Care Provider: [facility] Course Hospital Course: Brianna is a very pleasant 29 year old transgender male to female, on hormonal therapy, as well as aldactone. She also has a past medical history significant for PTSD for which she is on prazosin, HTN, on lisinopril, depression, anxiety and alcohol abuse. She presented to the ED on the night of 06/22 after verbalizing suicidal ideation to her boyfriend. She was noted in the ED to be hypotensive as low as 62/29. She was aggressively rehydrated and continued to have low blood pressure. She was admitted to the ICU for further evaluation and management. She received a blood transfusion overnight due to having acute anemia in the setting of dehydration with hemo-concentration. She had elevated BUN/Cr, which she has had in the past, possibly related to medications. She continued to receive IVF. Her aldactone, prazosin and lisinopril were held. Her blood pressure improved to 124/85 this morning, her renal function normalized. She continued to have asymptomatic orthostatic hypotension on the day of discharge, her blood pressure went down to 95/59 standing. She was monitored on tele, she was no longer tachycardic, she denied SOB, dizziness, lightheadedness. She was monitored for ETOH withdrawal and did not show signs of withdrawal. She was seen by mental health and cleared for discharge home. She has a card with a crisis number for [facility] if she needs it. She is scheduled to follow up with her psychiatrist and other mental health providers on 06/26 (2 days). She denies feeling suicidal at the time of discharge, she states she feels safe with discharge plan. She will call her PCP tomorrow to set up a follow up appointment. She is advised to STOP taking lisinopril, would recommend not restarting at all. She is instructed not to take aldactone or prazosin until she sees her prescribing provider, consider restarting at a reduced dose of both medications. She has a history of HTN, it is recommended that she monitor her blood pressure at home and present it to her PCP. Home Meds and New Rx's Prescriptions: New cyanocobalamin (vitamin B-12) [Vitamin B-12] 500 mcg Tablet 1,000 mcg PO DAILY Qty: 30 RF: 0 Continued estradiol 0.025 mg/24 hr patch semiweekly 1 patch TD .COMPLEX RF: 0 hydroxyzine pamoate 25 mg capsule 25 mg PO Q4H PRN (Reason: itching) Qty: 30 RF: 2 bupropion HCl 150 mg tablet extended release 24 hr 150 mg PO QAM Qty: 30 RF: 0 duloxetine 60 mg capsule,delayed release(DR/EC) 60 mg PO DAILY Qty: 30 RF: 0 Trintellix 5 mg tablet 5 mg PO DAILY RF: 0 Discontinued spironolactone 50 mg tablet 50 mg PO BID Qty: 60 RF: 0 lisinopril 30 mg tablet 30 mg PO DAILY Qty: 30 RF: 11 prazosin 5 mg capsule 5 mg PO QPM Qty: 7 RF: 0 prazosin 2 mg capsule 2 mg PO QPM Qty: 7 RF: 0 Discharge Instructions Instructions: Hypotension (DC), Suicide Prevention (DC) Additional Instructions: Stop taking Lisinopril. Monitor your blood pressure at home and bring to your PCP visit. Call your PCP tomorrow to make a follow up appointment for the next 2 weeks. Stop aldactone and prazosin until you see your mental health providers, you will likely need a lower dose of these medications. Follow up with [facility] as scheduled. Call [facility] crisis line if you need assistance. Do not drink alcohol. Take care! Stand Alone Forms: Nursing Discharge Form Referrals: Nelia Quevedo DESKTOP PUBLISHING SPECIALIST [Primary Care Provider] - (PLEASE CALL THURSDAY FOR FOLLOW UP APPOINTMENT.) Activity:: Activity as Tolerated Equipment/Supplies:: No Equipment Needed Diet:: As Tolerated Discharge Orders Discharge Orders: Discharge Order (Routine); Ordered 06/24/20 Ordered By: Ernestina Vann DS: Summary Status at Discharge Functional status at discharge: independent ambulation Overall status at discharge: patient is back to baseline Mental Status: mental status grossly normal Speech and Movement: speech and movement normal Mood: congruent mood Affect: normal affect Exam Narrative Exam Narrative: General: very pleasant 29 year old female, appears stated age. Appears mildly anxious. Alert and appropriate. HEENT: normoecphalic, atraumatic, makes good eye contact, pupils equal and round, EOMI. mucous membranes moist. Neck: supple, no JVD. Cardiovascular: heart has regular rate and rhythm, nontachycardic, no murmur. Respiratory: respirations appear even and unlabored, lung sounds clear throughout. GI: normoactive bowel sounds, abdomen soft, nontender and nondistended. Extremities: moves all 4 extremities freely, no edema. Psych Mental Status: mental status grossly normal Speech and Movement: speech and movement normal Mood: congruent mood Affect: normal affect DS: Data Vitals/I&O Vitals and I&O: Vital Signs Temperature 36.2 C L 06/24/20 11:12 Temperature Source Tympanic 06/24/20 11:12 Pulse 88 06/24/20 11:12 Pulse Rhythm Regular 06/24/20 09:41 Pulse 122 H 06/23/20 12:00 Respiratory Rate 17 06/24/20 11:12 Respiratory Effort Non-Labored 06/24/20 09:41 Respiratory Depth Normal 06/24/20 09:41 Respiratory Pattern Normal 06/24/20 09:41 Blood Pressure 124/85 06/24/20 11:12 Blood Pressure Mean 85 06/23/20 12:00 Blood Pressure Position Supine 06/23/20 08:02 Pulse Oximetry 100 06/24/20 11:12 Oxygen Delivery Method Room Air 06/24/20 11:12 Oxygen Flow Rate 0 06/24/20 11:12 Pain Level 0 06/24/20 11:12 Comment 06/24/20 08:25 Intake & Output 06/23/20 06/23/20 06/24/20 11:59 23:59 11:59 Intake Total 1006 / 3886 2880 / 3886 3787.917 / 3787.917 Output Total 1000 / 1000 Balance 2885 2880 / 2886 3787.917 / 3787.917 Weight 66.8 kg Intake: IV / 1 1999 3167.917 / 3167.917 Oral 500 / 1380 880 / 1380 620 / 620 Blood Product 405 / 405 Rbc Leuko Reduced Unit 405 / 405 [id number] Output: Urine 1000 / 1000 Other: Urine Color Pale Yellow Yellow Urine Appearance Clear Clear Clear Urine Odor None None Normal Comment [id number] transgender independenttly went to the bathroom Unmeasured urine output. Stool Size Moderate Moderate Stool Characteristics Liquid Formed Brown Voiding Methods Bedside Commode Toilet Toilet Data Completed and Pending Labs on day of discharge: Labs from last 24 hours 06/24/20 06/24/20 06/23/20 06:38 06:38 15:45 WBC 5.08 RBC 4.04 Hgb 13.8 Hct 38.2 MCV 94.6 MCH 34.2 H MCHC 36.1 H RDW 12.1 Plt Count 182 MPV 10.2 Immature Gran % 0.2 Neutrophils % 62.5 Lymphocytes % 27.4 Monocytes % 6.5 Eosinophils % 2.8 Basophils % 0.6 Nucleated RBC % 0 Absolute Neutrophils 3.18 Absolute Lymphocytes 1.39 Absolute Monocytes 0.33 Absolute Eosinophils 0.14 Absolute Basophils 0.03 Sodium 140 Potassium 4.1 Chloride 106 Carbon Dioxide 26.5 Anion Gap 7.5 BUN 9 Creatinine 0.98 Estimated GFR/1.73 m2 >= 60.00 Glucose 103 Calcium 9.0 Magnesium 1.8 Stl C.difficile Tox PCR Negative COVID-19 PCR Nasopharyn COVID-19 PCR Cryptosporidium/Giardia Ref Test Perform Site 06/23/20 06/22/20 15:45 23:20 WBC RBC Hgb Hct MCV MCH MCHC RDW Plt Count MPV Immature Gran % Neutrophils % Lymphocytes % Monocytes % Eosinophils % Basophils % Nucleated RBC % Absolute Neutrophils Absolute Lymphocytes Absolute Monocytes Absolute Eosinophils Absolute Basophils Sodium Potassium Chloride Carbon Dioxide Anion Gap BUN Creatinine Estimated GFR/1.73 m2 Glucose Calcium Magnesium Stl C.difficile Tox PCR COVID-19 PCR Negative Nasopharyn COVID-19 PCR Not Applicable Cryptosporidium/Giardia Pending Ref Test Perform Site [facility] Medical History Alcohol abuse Alcohol abuse Depression Hypertension Surgical History No pertinent past surgical history Family History Maternal Grandfather Alcohol abuse Diabetes Mother No problems noted. Sister Asthma Maternal Grandmother Diabetes Social History Smoking/Tobacco Use Status: Current-Occasional Tobacco Type: cigarettes Quit status: considering quitting Second Hand Exposure: Yes Smoking risk assessment performed?: Yes Alcohol Intake: current Alcohol Intake frequency: a few times a week Alcohol type: beer, wine and hard liquor Drug use: Current Sobriety Substance use type: marijuana Counseling given: No Counseling provided: none Details: no marijuana use in over a week Caregiver/Support person: No Household members: significant other Housing: house Communication Needs: Corrective Lenses Do you need help understanding health information?: Rarely Pets and animals: Yes Pets and animals: dog(s) Sexually active: Yes Do you think of yourself as: straight/heterosexual Current gender identity: trans [id number] What is your relationship status?: living with partner How often do you talk on the phone with friends or family?: once per week How often do you get together with friends or relatives?: decline to answer How often do you attend scientologist or faith services?: decline to answer Do you belong to any clubs or organized social groups?: no Panel score (0-1 are the most socially isolated patients): 1 What type of physical activity do you participate in: weight lifting and other Details: CARDIO Duration: 45-60 minutes/day Frequency: 3-4 times per week Seatbelt use: always Helmet use: Yes Helmet use: sometimes Drive intox or ride w/intox fence post driver: No Do you feel safe at home: No Do you feel safe in your relationship?: No
[2020-06-24 13:25] VITALS: PULSE 113
--- NOTE | 2020-06-24 13:26 | CMDISCH_ITS ---
- If Service Date Differs Date of service: 06/24/20 Time of Service: 13:26 LACE Index Scoring Tool - Questions: Length of Stay (in days): 2 Acuity (Admit via E.D.?): Yes E.D. Visits: 3 - Answers: Total Score: 8 Risk of Readmission: Low Risk Care Management Discharge Reason for Hospitalization: Hypotension and suicidal. Discharge Plan: Brianna is discharged home with no new services. She will follow up with her PCP, [facility] providers, kids activities coach, and plan of care as directed. Her partner, Jamie, is driving her home via private vehicle. Patient/Family Education Needs: Discharge instructions and follow up plan of care, including [employer] Me [employer] and self-management.
== END 2020-06-24 13:50 | disposition home or self-care (01) ==
LOC: ER 23:41 → ICU 06-23 00:28 → MS 06-23 15:38
PROVIDERS: Internal Medicine; Admitting Provider General Practice; Emergency Provider Nurse Practitioner Acute Care; PCP Nurse Practitioner; Visit Provider General Practice
DX: F33.2 Major depressive disorder, recurrent severe without psychotic features (principal); I95.9 Hypotension, unspecified; F10.129 Alcohol abuse with intoxication, unspecified; R45.851 Suicidal ideations; F17.210 Nicotine dependence, cigarettes, uncomplicated; E86.0 Dehydration; D64.9 Anemia, unspecified; R19.7 Diarrhea, unspecified; F43.10 Post-traumatic stress disorder, unspecified; N17.9 Acute kidney failure, unspecified; N18.9 Chronic kidney disease, unspecified; I12.9 Hypertensive chronic kidney disease with stage 1 through stage 4 chronic kidney disease, or unspecified chronic kidney disease
CPT/HCPCS: 36415; 36430; 80048; 80053; 80307; 82550; 86850; 86900; 86901; 86920; 87329; 87493; 93005; 96360; 99222; 99225; 99239; 99285; U0003; 80320; 80329; 81003; 82607; 82728; 82746; 83540; 83550; 83735; 84443; 84484; 85014; 85018; 85025; 85045; 93010; 99217; 99219; 99284; G0378; J1720; J3475; P9016

== ENCOUNTER 2021-02-28 23:17 | Emergency (ER) | payer MEDICAID, SELFPAY ==
[2021-02-28 23:23] VITALS: BP 142/82; PULSE 140; RESP 20; TEMP 37.1; O2SAT 97
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
--- NOTE | 2021-02-28 23:53 | NUR.NOTE ---
[id number]-Patient SO Jamie to go home for the night. Can be reached at [phone] Note:
--- NOTE | 2021-03-01 00:12 | NUR.NOTE ---
Resting with eyes closed; appears sleeping. No apparent distress. Warm blanket provided. Bed in lowest, locked position. Side rails up x2. Lights dimmed to promote rest.Nursing Note:
--- NOTE | 2021-03-01 02:20 | NUR.NOTE ---
Resting with eyes closed; appears sleeping. Able to reposition independently. No apparent distress noted. Call light in reach. Nursing Note:
--- NOTE | 2021-03-01 03:24 | NUR.NOTE ---
Patient continues resting with eyes closed; appears sleeping. No distress noted. Call light in reach.Nursing Note:
--- NOTE | 2021-03-01 04:13 | NUR.NOTE ---
Resting with eyes closed; appears sleeping. Lying supine. Call light in reach.Nursing Note:
--- NOTE | 2021-03-01 05:24 | NUR.NOTE ---
Resting with eyes closed; appears sleeping. No apparent distress. Lying on left side. Call light in reach.Nursing Note:
--- NOTE | 2021-03-01 06:34 | NUR.NOTE ---
Resting with eyes closed; appears sleeping. HOB elevated. Repositions independently. Call light in reach.Nursing Note:
--- NOTE | 2021-03-01 06:56 | NUR.NOTE ---
Report to dayshift RN for continued careNursing Note:
[2021-03-01 10:48] VITALS: BP 132/87; PULSE 94; TEMP 37.2; O2SAT 98
== END 2021-03-01 10:55 | disposition home or self-care (01) ==
PROVIDERS: Emergency Provider Student in an Organized Health Care Education/Training Program; PCP Nurse Practitioner
DX: F10.120 Alcohol abuse with intoxication, uncomplicated (principal); F32.9 Major depressive disorder, single episode, unspecified; Z62.810 Personal history of physical and sexual abuse in childhood
CPT/HCPCS: 99283

== ENCOUNTER 2022-01-16 02:32 | Outpatient (CLI) | payer MEDICAID, SELFPAY ==
[2022-01-16 12:49] LABS: HCT 44.5 % (36.0-46.0); HGB 15.7 g/dL (11.2-15.7); MCH 35.1 pg (27.0-33.0); MCHC 35.3 % (32.0-36.0); MCV 100 fL (80-95); MPV 10.2 fL (8.0-11.0); Platelet Count 228 10^3/uL (130-400); RBC 4.47 10^6/uL (3.93-5.22); RDW 11.9 % (11.7-14.6); RDW-SD 43.6 fL; WBC 6.81 10^3/uL (4.4-10.8)
[2022-01-16 14:28] LABS: Hemoglobin A1C 5.3 % (<5.7)
[2022-01-16 15:26] LABS: Calculated LDL 140 mg/dL (<100); Cholesterol 240 mg/dL (<200); HDL Cholesterol 84 mg/dL (40-60); Triglyceride 84 mg/dL (<150)
== END 2022-01-16 02:33 | disposition home or self-care (01) ==
LOC: LOS 02:32
PROVIDERS: PCP Nurse Practitioner; Visit Provider Nurse Practitioner
DX: D64.9 Anemia, unspecified (principal); Z13.1 Encounter for screening for diabetes mellitus; Z13.6 Encounter for screening for cardiovascular disorders
CPT/HCPCS: 36415; 80061; 85027; 83036

== ENCOUNTER 2024-03-19 22:50 | Emergency (ER) | payer BC, SELFPAY ==
[2024-03-19 22:53] VITALS: BP 128/79; PULSE 122; RESP 16; TEMP 36; O2SAT 98
--- NOTE | 2024-03-19 23:06 | W.ED.GENAD ---
Discharge Plan Discharge Details Chief Complaint: PsychEval Primary Care Provider: Unknown,Unknown ED Provider: Jeanmarie Hobbs General Mode of arrival: ambulatory (with VSP). Date/Time Provider Initiated Documentation: 03/19/24 23:02. Limitations to Documentation: altered mental status (intoxicated). Information obtained by: patient and police. HPI Narrative: Patient brought to the ED by police for evaluation of intoxication and suicidal statements. Per the upscale security officer boyfriend called with concern for patient's safety reporting that she has been making suicidal statements for the last 3 days. Tonight statements escalated in relation to alcohol intoxication. Police report that she blew 0.29 on the breathalyzer. Officer also reports that she made suicidal statements to him. On my evaluation patient does admit to drinking alcohol but will not quantify how much. Also implies that she used drugs but also refuses to answer what substances. She also does not answer when questioned regarding suicidal statements. She denies any physical complaints. General Stated Complaint: PsychEval JAY: 2 Review of Systems Unobtainable due to mental status Exam Narrative Exam Narrative: Const: WDWN female in NAD. VS per triage. HEENT: NC/AT. Normal facial exam. Neck: Supple. Trachea midline. Lungs: Normal respiratory effort. Lungs are clear. Cor: RRR without murmur. Good radial pulses. GI: Soft/ND/NT. Neuro: A+O x 3. Slurred speech, slow mentation, unsteady gait. Cranial nerves II - XII grossly intact. No gross motor or sensory deficit. Ext: No C/C/E. Course Vital Signs Vital signs: Vital Signs Temperature 96.8 F L 03/19/24 22:53 Pulse 122 H 03/19/24 22:53 Respiratory Rate 16 03/19/24 22:53 Blood Pressure 128/79 03/19/24 22:53 Pulse Oximetry 98 03/19/24 22:53 Temperature 96.8 F L 03/19/24 22:53 Temperature Source Temporal Artery Scan 03/19/24 22:53 Pulse 122 H 03/19/24 22:53 Respiratory Rate 16 03/19/24 22:53 Blood Pressure 128/79 03/19/24 22:53 Blood Pressure Position Sitting 03/19/24 22:53 Pulse Oximetry 98 03/19/24 22:53 Oxygen Delivery Method Room Air 03/19/24 22:53 Oxygen Flow Rate 0 03/19/24 22:53 Pain Level 0 03/19/24 22:53 Medical Decision Making Patient presenting with police escort with alcohol intoxication and concern regarding safety and suicidal statements. Patient clearly is intoxicated. Will not answer directly regarding drug use or suicidal ideation. Is aware that she will be held here until sober and then will be evaluated by [facility]. Laboratory studies ordered including serum and urine drug screens. Patient observer assigned. 00:00 - Patient was born male but has now transitioned to female with recent breast implants placed. Labs mostly unremarkable except for alcohol level of 344. Urine drug screen still pending. Hold in ED for sober mental health evaluation. 08:00 - Patient much more coherent this morning. She remains calm and cooperative. Urine drug screen is positive for marijuana only. Patient is cleared at this point to be evaluated by mental health. Signed out to oncoming provider pending mental health evaluation. [facility] Medical History [id number] transgender person Surgical History (Updated 03/20/24 @ 00:09 by Jeanmarie Hobbs MD) H/O breast implant Social History Smoking/Tobacco Use Status: Never Smoking risk assessment performed?: Yes Alcohol Intake: current Alcohol Intake frequency: 0-2 drinks per day Alcohol type: wine and hard liquor Drug use: Daily Substance use type: marijuana Housing: other Do you feel safe at home: No Do you feel safe in your relationship?: Yes PAWSS Have you Been Recently Intoxicated or Drunk Within the Last 30 days?: Yes Have you Ever Experienced Previous Episodes of Alcohol Withdrawal?: Yes Have you ever Experienced Withdrawal Seizures?: Yes Have you ever Experienced Delirium Tremens(DT)s?: Yes Have you ever undergone Alcohol Rehabilitation Treatment (i.e, inpt ot outpatient treatment programs)?: Yes Have you ever Experienced Blackouts?: Yes Have you ever Combined Alcohol with other Downers within the last 90 days?: Yes Have you ever Combined Alcohol with any other Substance of Abuse during the last 90 days?: No Positive Blood Alcohol level on Presentation? [PCS.BAL]: Yes Evidence of Increased Autonomic Activity (i.e. HR>120, tremor, sweating, agitation, nausea)?: Yes Result: 8
[2024-03-19 23:15] LABS: Abs Immature Grans 0.02 10^3/uL (0.0-0.06); Absolute Basophil Count 0.02 10^3/uL (0.0-0.2); Absolute Eosinophil Count 0.06 10^3/uL (0.0-0.7); Absolute Lymphocyte Count 2.63 10^3/uL (1.2-3.4); Absolute Monocyte Count 0.62 10^3/uL (0.1-0.8); Absolute Neutrophil Count 4.88 10^3/uL (1.2-6.7); Basophils % 0.2 %; Eosinophils % 0.7 %; HCT 47.1 % (36.0-46.0); Immature Grans % 0.2 %; MCH 35.3 pg (27.0-33.0); MCHC 36.1 % (32.0-36.0); MCV 98 fL (80-95); Monocytes % 7.5 %; Neutrophils % 59.4 %; Platelet Count 348 10^3/uL (130-400); RBC 4.82 10^6/uL (3.93-5.22); RDW 11.9 % (11.7-14.6); RDW-SD 43.3 fL; WBC 8.23 10^3/uL (4.4-10.8)
[2024-03-19 23:36] LABS: Acetaminophen < 2 ug/mL (10-30); Salicylate < 2.8 mg/dL (<2.8)
[2024-03-19 23:40] LABS: ALT 22 U/L (14-59); AST 28 U/L (15-37); Albumin 4.5 g/dL (3.4-5.0); Alkaline Phosphatase 117 U/L (46-116); BUN 9 mg/dL (7-18); Calcium 10.3 mg/dL (8.5-10.1); Chloride 104 mmol/L (98-107); ETHANOL BLOOD 344.4 mg/dL (<10); Estimated GFR 77.24 (mL/min/1.73m2); Glucose 106 mg/dL (74-106); Sodium 145 mmol/L (136-145); TSH (W/Ref FT4) 1.39 uIU/mL (0.36-3.74); Total Protein 7.9 g/dL (6.4-8.2)
[2024-03-20 00:12] LABS: Bilirubin Negative (Negative); Blood Negative (Negative); Clarity Clear (Clear); Glucose Negative (Negative); Ketones Negative (Negative); Leukocyte Esterase Negative (Negative); Nitrite Negative (Negative); Specific Gravity 1.015 (1.005-1.025); Urobilinogen 0.2 mg/dL (Up to 0.2)
[2024-03-20 00:23] LABS: *AMPHETAMINES SCREEN URINE Negative (Negative); *BARBITURATES SCREEN URINE Negative (Negative); *BENZODIAZEPINES SCREEN URINE Negative (Negative); Cannabinoids THC Positive (Negative); Cocaine Screen,Urine Negative (Negative); METHADONE URINE SCREEN Negative (Negative); OPIATES URINE SCREEN Negative (Negative)
[2024-03-20 00:26] LABS: Tricyclic Antidepressants Negative (Negative)
[2024-03-20 06:00] VITALS: BP 118/88; PULSE 92; RESP 16; TEMP 36.6; O2SAT 97
--- NOTE | 2024-03-20 08:03 | PDOC.CMSAFE ---
Date of service: 03/20/24 Time of Service: 08:04 Care Management Safety Plan Status Status: Voluntary Reason for Wait Reason for Wait: Inpatient Admission (Awaiting psych eval) Safety Plan Safety Plan: VOLUNTARY FOR INPATIENT PSYCHIATRIC STABILIZATION. Patient is appropriate in all interactions since arriving at [facility]; Pt has demonstrated appropriate coping and communication skills, has articulated his or her needs and concerns and is fully engaged during staff interactions. Safety plan has been established with patient, and care team, to adhere to patient goals, identify restrictions based on behavioral status, address nutrition, and determine allowed personal belongings, tools for hygiene and personal care. Determine level of activity including ambulation, level of supervision, visitors, and determine privileges based on behaviors and level of engagement by pt. SAFETY PLAN: 1. Will remain on suicide precautions. In Paper Clothes 2. Will remain in room under direct supervision of one-on-one staff at all times provided by [employer]; VALENTIN, RESEARCH PROJECT MANAGER agronomy professor. 3. May have paper cups, plates, finger foods as well as a cardboard spoon with which to eat meals. 4. Follow [facility] Management of the Admitted Behavioral Health Patient policy. 5. Comfort bath system only, shower permitted with escort at RN discretion. 6. No personal belongings-soft items permitted at RN discretion. 7. Visitors-none at this time. 8. Activities: soft cart items approved per RN discretion. 9. Bathroom privileges with escort in the ED, available in room without limitation on M/S. 10. Phone: contact limited to family at this time, via cordless phone at RN discretion. 11. Due to VOLUNTARY status, if patient wishes to leave [facility], staff will contact [facility] Crisis Screener ([phone]) and On-Call Carpenter Apprentice ([phone]) as soon as possible. In the event of elopement, notify [place] [employer] ([phone]). Patient is currently voluntarily at [facility] and seeking inpatient admission when a bed becomes available. [facility] Frontline Tile Power Shear Operator will continue seeking placement. Please contact the [employer]obster Man Carpenter Apprentice ([phone]) and [facility] Tile Power Shear Operator ([phone]) for any needed changes in the Safety Plan. Safety plan has been provided to interdepartmental care team.
--- NOTE | 2024-03-20 09:49 | W.EDPROG ---
Date of service: 03/20/24 Time of Service: 09:49 Medical Decision Making Patient clinically sober and denying SI, met with NK chest and will be safety plan at home. She will follow-up with her mental health clinicians primary care, return precautions given Quality:SDOH Health Related Social Needs: No Data to Display Sign Out Sign Out Data: Sign Out Comment: Pending mental health evaluation Last updated by Jeanmarie Hobbs MD at 03/20/24 08:54 Discharge Plan Disposition Patient Disposition: Home Condition: Stable Discharge Details Chief Complaint: PsychEval Clinical Impression: Alcohol intoxication Primary Care Provider: Natalia Ramsey ED Provider: Darell Tong Discharge Instructions Additional Instructions: Follow-up with your mental health provider and primary care provider If you feel more ill or have worsening thoughts of self-harm return to the emergency department for reevaluation
== END 2024-03-20 10:51 | disposition home or self-care (01) ==
PROVIDERS: Emergency Medicine; Emergency Provider Emergency Medicine; PCP Nurse Practitioner Family
DX: F10.929 Alcohol use, unspecified with intoxication, unspecified (principal)
CPT/HCPCS: 00123; 36415; 80053; 80307; 99285; 80320; 80329; 81003; 84443; 85025; 99283